=== PATIENT | female | born 1995 | race Caucasian/White ===

== ENCOUNTER 2017-09-06 18:22 | Emergency (ER) | payer OTHER | END 2017-09-06 19:49 | disposition left against medical advice (07) | LOC: UCCORT 18:22 | DX: R68.89 Other general symptoms and signs (principal); Z53.21 Procedure and treatment not carried out due to patient leaving prior to being seen by health care provider ==

== ENCOUNTER 2018-01-15 18:27 | Emergency (ER) | payer OTHER ==
--- OUTSIDE RECORDS SUMMARY | 2018-01-15 19:59 | XMS REPORT ---
:1995 External Reference #:[id number] Author Organization [facility] Address [address], [address] [place] [address] Phone [phone] Care Team Providers Name Role Phone Maggy Trujillo NP Care Team Information Speech Writer Unavailable Maggy Trujillo NP Primary Care Physician Unavailable Payers Type Date Identification Numbers Payment Provider Subscriber Commercial Effective: Policy Number: Dheeraj Medicaid Dianne Shafer 2007 [id number] PayID: [id number] [address] [place] [address] Medicaid Expires: 2017 Policy Number: [id number] Medicaid Dianne Shafer PayID: [id number] [address] [place] [address] Problems Date Description Provider Status Onset: 03/29/2017 Autoimmune hepatitis KIRA Mohan Active Note: Document: 03/05/17 - Consult Surgery-Transplant Onset: 03/29/2017 Graves' disease KIRA Mohan Active Onset: 02/06/2017 Palpitations KIRA Mohan Active Onset: 02/06/2017 Depressive disorder KIRA Mohan Active Onset: 02/06/2017 Abnormal liver function KIRA Mohan Active Onset: 11/07/2017 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 Onset: 11/07/2017 Drug-induced obesity KIRA Mohan Active Family History Date Family Member(s) Problem(s) Comments Father Unknown Mother Diabetes Mother Depression Mother Hypertension Mother Anxiety Paternal Grandfather Unknown Paternal Grandmother Unknown Maternal Grandfather Diabetes Maternal Grandfather CAD Maternal Grandmother Stroke Maternal Grandmother Diabetes Social History Type Date Description Comments Lives With Mother Diet Patient follows no dietary restrictions Occupation Student [employer] - studying psychology Occupation [employer] 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 Recreational Drug Use Denies Drug Use Smoking Patient denies history of Never smoked smoking Allergies, Adverse Reactions, Alerts Date Description Reaction Status Severity Comments 12/05/2016 Reglan active 12/05/2016 Adhesives active 03/09/2009 NKDA inactive Medications Medication Date Status Form Strength Qnty SIG Indications Ordering Provider Splint Wrist Misc 1units use on rt G56.01 Maggy Brace/Left-R 2018 wrist as ClKIRA moore ight/Reversi needed for ble computer work Naproxen 12/19/ Active Tablets 500mg 60tabs take one M72.2 Maggy 2018 tablet by KIRA Trujillo mouth twice a day S86.892A M46.1 Ibuprofen 12/05/2016 Active Tablets 800mg 90tabs take one E28.2 Maggy tablet by KIRA Trujillo mouth every 6 hours as needed Norgestimate-Et 12/05/2016 Active Tablets 0.25-3 28tabs one by Z30.09 Maggy h Estradiol 5mg-mc mouth KIRA Trujillo g every day Azathioprine Active Tablets 50mg 3 tabs po Unknown Calcium Active Tablets 600-40 Unknown Carbonate-Vitam 0mg-Un in D it Vitamin D Active Tablets 1000Un 1 by Unknown it mouth every day Synthroid Active Tablets 137mcg 90tabs 1 tab by Unknown mouth every day Paroxetine HCL Active Tablets 10mg Salma Rodríguez Sumatriptan 01/09/2017 - Hx Tablets 25mg 9tabs one by G43.10 Jenniferleigh Succinate 03/30/2017 mouth at 9 KIRA Trujillo the first sign of headache, may repeat dose in 2 hours if needed. mdd 2 Drospirenone/Et 12/05/2016 - Hx Tablets 3-0.02 Maggy hinyl 12/05/2016 -0.451 KIRA Trujillo Estradiol/Levom mg efolate Calcium Clonidine HCL 12/05/2016 - Hx Tablets 0.1mg 60tabs take one Maggy 03/30/2017 tablet by KIRA Trujillo mouth every night Fluoxetine HCL 12/05/2016 - Hx Capsules 10mg 30caps 1 by Maggy (PMDD) 01/09/2017 mouth KIRA Trujillo every day at bedtime Fluoxetine HCL - Hx Capsules 40mg Take One Unknown 03/30/2017 Capsule By Mouth Every Day Hydroxyzine - Hx Capsules 25mg Take 1 Unknown Pamoate 03/30/2017 Capsules By Mouth Every 8 Hours as Needed For Anxiety Metoprolol - Hx Tablets 25mg Take 1 Unknown Tartrate 11/07/2017 Tablet (25 MG Total) By Mouth 2 Times Daily Paroxetine HCL - Hx Tablets 20mg Take 1 Unknown 12/19/2017 Tablet By Mouth Every Day Prednisone - Hx Tablets 5mg as Unknown 11/07/2017 directed Levothyroxine - Hx Tablets 125mcg Unknown Sodium 12/19/2017 Vital Signs Date Vital Result Comment 01/09/2018 BP Systolic Sitting Left Arm 110 mmHg BP Diastolic Sitting Left Arm 72 mmHg Heart Rate 80 /min Respiratory Rate 18 /min Height 62 inches 5'2" Weight 186.25 lb BMI (Body Mass Index) 34.1 kg/m2 BSA (Body Surface Area) 1.85 m2 Swisher body weight in kilograms 50 12/19/2017 BP Systolic Sitting Left Arm 112 mmHg BP Diastolic Sitting Left Arm 72 mmHg Heart Rate 74 /min Respiratory Rate 18 /min Height 62 inches 5'2" Weight 180.00 lb BMI (Body Mass Index) 32.9 kg/m2 BSA (Body Surface Area) 1.83 m2 Swisher body weight in kilograms 50 11/07/2017 BP Systolic 112 mmHg BP Diastolic 74 mmHg Body Temperature 98.9 F Heart Rate 106 /min Respiratory Rate 18 /min Height 62 inches 5'2" Weight 181.00 lb BMI (Body Mass Index) 33.1 kg/m2 BSA (Body Surface Area) 1.83 m2 Swisher body weight in kilograms 50 O2 % BldC Oximetry 98 % 03/30/2017 BP Systolic Sitting Left Arm 108 mmHg BP Diastolic Sitting Left Arm 62 mmHg Heart Rate 88 /min Respiratory Rate 18 /min Height 62 inches 5'2" Weight 154.00 lb BMI (Body Mass Index) 28.2 kg/m2 BSA (Body Surface Area) 1.71 m2 Swisher body weight in kilograms 50 Height Percentile 18 % Weight Percentile 84th Last Menstrual Period [id number] 01/09/2017 BP Systolic 108 mmHg BP Diastolic 64 mmHg Height 62 inches 5'2" Weight 143.00 lb BMI (Body Mass Index) 26.2 kg/m2 BSA (Body Surface Area) 1.66 m2 Swisher body weight in kilograms 50 Height Percentile 3 % Weight Percentile <3rd 12/05/2016 BP Systolic 122 mmHg BP Diastolic 80 mmHg Height 62 inches 5'2" Weight 146.50 lb BMI (Body Mass Index) 26.8 kg/m2 BSA (Body Surface Area) 1.67 m2 Swisher body weight in kilograms 50 03/09/2009 Height 54 inches 4'6" Weight 74.00 lb BMI (Body Mass Index) 17.8 kg/m2 Height Percentile 7 % Weight Percentile 22nd Results Test Date Test Result H/L Range Note Urine Dipstick 12/19/2017 Ua PH 5 Low 6.5-7.5 Ua Specific [place] 1.025 1.010-1.030 CBC 10/05/2017 White Blood Count 8.2 K/uL 3.1-10.7 1 Red Blood Count 4.22 M/uL 3.90-5.40 1 Hemoglobin 13.5 gm/dL 11.6-15.8 1 Hematocrit 38.5 % 36.0-46.1 1 Mean Cell Volume 91.2 fl 80.9-99.0 1 Mean Corpuscular HGB 32.0 pg 25.9-32.7 1 Mean Corpuscular HGB Conc 35.1 g/dL High 30.8-34.3 1 Platelet Count 277 K/uL 155-360 1 Red Cell Distri Width %CV 13.5 % 11.7-14.4 1 Mean Platelet Volume 9.1 fL 8.9-12.4 1 Comprehensive Metabolic Panel 10/05/2017 Glucose 97 mg/dL 74-106 1 BUN 7 mg/dL 7-18 1 Creatinine 0.7 mg/dL 0.6-1.3 1 Glom Filtration Rate, Estimate >60 mL/min >60 1 If >60 mL/min >60 1, 2 BUN/Creat 10.0 ratio 1 Sodium 139 mmol/L 136-145 1 Potassium 3.7 mmol/L 3.5-5.1 1 Chloride 109 mmol/L High 98-107 1 Carbon Dioxide 24 mmol/L 21-32 1 Anion Gap 6 mEq/L Low 8-16 1 Calcium 8.5 mg/dL 8.5-10.1 1 Total Protein 7.8 g/dL 6.4-8.2 1 Albumin 3.4 g/dL 3.4-5.0 1 Globulin 4.4 g/dL High 1.9-4.3 1 Alb/Glob 0.8 ratio 1 Bilirubin,Total 0.6 mg/dL 0.2-1.0 1 Sgot/Ast 18 U/L 15-37 1 SGPT/Alt 16 U/L 12-78 1 Alkaline Phosphatase 115 U/L 45-117 1 CBS W/Automated Diff 04/24/2017 White Blood Count 9.6 K/uL 3.1-10.7 3 Red Blood Count 5.20 M/uL 3.90-5.40 3 Hemoglobin 14.6 gm/dL 11.6-15.8 3 Hematocrit 45.0 % 36.0-46.1 3 Mean Cell Volume 86.5 fl 80.9-99.0 3 Mean Corpuscular HGB 28.1 pg 25.9-32.7 3 Mean Corpuscular HGB Conc 32.4 g/dL 30.8-34.3 3 Platelet Count 258 K/uL 150-400 3 Red Cell Distri Width SD 43.3 fl 3-47 3 Red Cell Distri Width %CV 14.0 % 11.7-14.4 3 Mean Platelet Volume 9.1 fL 8.9-12.4 3 Neut% 51.0 % 28.0-68.0 3 Lymph % 37.9 % 20.0-42.0 3 [place] % 8.2 % 4.3-13.2 3 Eo% 2.5 % 0.0-6.6 3 Bas% 0.4 % 0.0-1.1 3 Neut# 4.91 K/uL 1.8-7.0 3 Lymph # 3.65 K/uL 1.0-4.0 3 [place] # 0.79 K/uL 0.3-0.9 3 Eos # 0.24 K/uL 0.0-0.5 3 Baso # 0.04 K/uL 0.0-0.1 3 Comprehensive Metabolic Panel 04/24/2017 Glucose 77 mg/dL 74-106 3 BUN 6 mg/dL Low 7-18 3 Creatinine 0.6 mg/dL 0.6-1.3 3 Glom Filtration Rate, Estimate >60 mL/min >60 3 If >60 mL/min >60 3, 4 BUN/Creat 10.0 ratio 3 Sodium 138 mmol/L 136-145 3 Potassium 3.8 mmol/L 3.5-5.1 3 Chloride 103 mmol/L 98-107 3 Carbon Dioxide 29 mmol/L 21-32 3 Anion Gap 6 mEq/L Low 8-16 3 Calcium 9.2 mg/dL 8.5-10.1 3 Total Protein 7.7 g/dL 6.4-8.2 3 Albumin 3.3 g/dL Low 3.4-5.0 3 Globulin 4.4 g/dL High 1.9-4.3 3 Alb/Glob 0.8 ratio 3 Bilirubin,Total 0.5 mg/dL 0.2-1.0 3 Sgot/Ast 10 U/L Low 15-37 3, 5 SGPT/Alt 25 U/L 12-78 3 Alkaline Phosphatase 108 U/L 45-117 3 Laboratory test finding 04/24/2017 Magnesium 2.1 mg/dL 1.8-2.4 3 HCG,Serum (Qualitative) NEGATIVE (Negative) 3, 6 Protime 03/29/2017 Protime 12.7 seconds 12.0-14.4 7 Inr 1.0 0.9-1.1 7, 8 Anticoagulant Therapy? NO 7 Differential-WBC Confirm 03/29/2017 Total Cells Counted 100 #CELLS 7 Band% 6 % 0-8 7 Neutrophils% 60 % 28-68 7 Lymph% 21 % 20-42 7 Atypical Lymph% 2 % 0-7 7 Monocyte% 11 % High 0-10 7 Platelet Estimate NORMAL 7 Anticoagulant Therapy? NO 7 Slide Review 03/29/2017 Slide Review DIFF ORDERED 7 Anticoagulant Therapy? NO 7 CBS W/Automated Diff 03/29/2017 White Blood Count 19.2 K/uL High 3.1-10.7 7 Red Blood Count 4.78 M/uL 3.90-5.40 7 Hemoglobin 13.9 gm/dL 11.6-15.8 7 Hematocrit 40.0 % 36.0-46.1 7 Mean Cell Volume 83.7 fl 80.9-99.0 7 Mean Corpuscular HGB 29.1 pg 25.9-32.7 7 Mean Corpuscular HGB Conc 34.8 g/dL High 30.8-34.3 7 Platelet Count 239 K/uL 150-400 7 Red Cell Distri Width SD 47.4 fl High 3-47 7 Red Cell Distri Width %CV 15.7 % High 11.7-14.4 7 Mean Platelet Volume 9.2 fL 8.9-12.4 7, 9 Neut# 14.56 K/uL High 1.8-7.0 7 Lymph # 3.17 K/uL 1.0-4.0 7 [place] # 1.39 K/uL High 0.3-0.9 7 Eos # 0.10 K/uL 0.0-0.5 7 Baso # 0.02 K/uL 0.0-0.1 7 Anticoagulant Therapy? NO 7 Laboratory test finding 03/29/2017 Amylase 51 U/L 25-115 7 Lipase 179 U/L 56-289 7 Comprehensive Metabolic Panel 03/29/2017 Glucose 79 mg/dL 74-106 7 BUN 2 mg/dL Low 7-18 7 Creatinine 0.4 mg/dL Low 0.6-1.3 7 Glom Filtration Rate, Estimate >60 mL/min >60 7 If >60 mL/min >60 7, 10 BUN/Creat 5.0 ratio 7 Sodium 137 mmol/L 136-145 7 Potassium 3.3 mmol/L Low 3.5-5.1 7 Chloride 106 mmol/L 98-107 7 Carbon Dioxide 23 mmol/L 21-32 7 Anion Gap 8 mEq/L 8-16 7 Calcium 8.8 mg/dL 8.5-10.1 7 Liver Function Tests 03/29/2017 Total Protein 7.3 g/dL 6.4-8.2 7 Albumin 3.2 g/dL Low 3.4-5.0 7 Globulin 4.1 g/dL 1.9-4.3 7 Alb/Glob 0.8 ratio 7 Bilirubin,Total 0.8 mg/dL 0.2-1.0 7 Bilirubin,Direct 0.2 mg/dL 0.0-0.2 7 Bilirubin,Indirect 0.6 mg/dL 0.0-0.9 7 Sgot/Ast 20 U/L 15-37 7 SGPT/Alt 44 U/L 12-78 7 Alkaline Phosphatase 169 U/L High 45-117 7 Protime 02/13/2017 Protime 13.7 seconds 12.0-14.4 11 Inr 1.1 0.9-1.1 11, 12 CBS W/Automated Diff 02/13/2017 White Blood Count 8.6 K/uL 3.1-10.7 11 Red Blood Count 5.05 M/uL 3.90-5.40 11 Hemoglobin 13.7 gm/dL 11.6-15.8 11 Hematocrit 40.5 % 36.0-46.1 11 Mean Cell Volume 80.2 fl Low 80.9-99.0 11 Mean Corpuscular HGB 27.1 pg 25.9-32.7 11 Mean Corpuscular HGB Conc 33.8 g/dL 30.8-34.3 11 Platelet Count 193 K/uL 150-400 11 Red Cell Distri Width SD 41.8 fl 3-47 11 Red Cell Distri Width %CV 14.5 % High 11.7-14.4 11 Mean Platelet Volume 11.3 fL 8.9-12.4 11 Neut% 52.4 % 28.0-68.0 11 Lymph % 32.4 % 20.0-42.0 11 [place] % 10.2 % 4.3-13.2 11 Eo% 4.8 % 0.0-6.6 11 Bas% 0.2 % 0.0-1.1 11 Neut# 4.51 K/uL 1.8-7.0 11 Lymph # 2.79 K/uL 1.0-4.0 11 [place] # 0.88 K/uL 0.3-0.9 11 Eos # 0.41 K/uL 0.0-0.5 11 Baso # 0.02 K/uL 0.0-0.1 11 Liver Function Tests 02/13/2017 Total Protein 8.0 g/dL 6.4-8.2 11 Albumin 2.8 g/dL Low 3.4-5.0 11 Globulin 5.2 g/dL High 1.9-4.3 11 Alb/Glob 0.5 ratio 11 Bilirubin,Total 12.1 mg/dL High 0.2-1.0 11 Bilirubin,Direct 9.1 mg/dL High 0.0-0.2 11 Bilirubin,Indirect 3.0 mg/dL High 0.0-0.9 11 Sgot/Ast 1172 U/L High 15-37 11 SGPT/Alt 1132 U/L High 12-78 11 Alkaline Phosphatase 147 U/L High 45-117 11 Aot Request 02/12/2017 Aot Request Test(s) added 11, 13 Tests to be added: LDH 11 Liver Function Tests 02/12/2017 Total Protein 7.1 g/dL 6.4-8.2 14 Albumin 2.5 g/dL Low 3.4-5.0 14 Globulin 4.6 g/dL High 1.9-4.3 14 Alb/Glob 0.5 ratio 14 Bilirubin,Total 9.5 mg/dL High 0.2-1.0 14 Bilirubin,Direct 7.2 mg/dL High 0.0-0.2 14 Bilirubin,Indirect 2.3 mg/dL High 0.0-0.9 14 Sgot/Ast 803 U/L High 15-37 14 SGPT/Alt 931 U/L High 12-78 14 Alkaline Phosphatase 130 U/L High 45-117 14 Basic Metabolic Panel 02/12/2017 Glucose 105 mg/dL 74-106 14 BUN 7 mg/dL 7-18 14 Creatinine 0.4 mg/dL Low 0.6-1.3 14 Glom Filtration Rate, Estimate >60 mL/min >60 14 If >60 mL/min >60 14, 15 BUN/Creat 17.5 ratio 14 Sodium 140 mmol/L 136-145 14 Potassium 4.0 mmol/L 3.5-5.1 14 Chloride 109 mmol/L High 98-107 14 Carbon Dioxide 22 mmol/L 21-32 14 Anion Gap 9 mEq/L 8-16 14 Calcium 8.5 mg/dL 8.5-10.1 14 Laboratory test finding 02/12/2017 Magnesium 2.0 mg/dL 1.8-2.4 14 LDH 453 U/L High 84-246 14 Laboratory test finding 02/11/2017 Magnesium 1.7 mg/dL Low 1.8-2.4 14 C-Reactive Protein,Quant 10.6 mg/L High <3.0 14 Basic Metabolic Panel 02/11/2017 Glucose 122 mg/dL High 74-106 14 BUN 6 mg/dL Low 7-18 14 Creatinine 0.4 mg/dL Low 0.6-1.3 14 Glom Filtration Rate, Estimate >60 mL/min >60 14 If >60 mL/min >60 14, 16 BUN/Creat 15.0 ratio 14 Sodium 137 mmol/L 136-145 14 Potassium 3.4 mmol/L Low 3.5-5.1 14 Chloride 107 mmol/L 98-107 14 Carbon Dioxide 23 mmol/L 21-32 14 Anion Gap 7 mEq/L Low 8-16 14 Calcium 9.1 mg/dL 8.5-10.1 14 Liver Function Tests 02/11/2017 Total Protein 7.0 g/dL 6.4-8.2 14 Albumin 2.5 g/dL Low 3.4-5.0 14 Globulin 4.5 g/dL High 1.9-4.3 14 Alb/Glob 0.6 ratio 14 Bilirubin,Total 9.3 mg/dL High 0.2-1.0 14 Bilirubin,Direct 7.1 mg/dL High 0.0-0.2 14 Bilirubin,Indirect 2.2 mg/dL High 0.0-0.9 14 Sgot/Ast 739 U/L High 15-37 14 SGPT/Alt 869 U/L High 12-78 14 Alkaline Phosphatase 122 U/L High 45-117 14 Protime 02/11/2017 Protime 13.9 seconds 12.0-14.4 14 Inr 1.1 0.9-1.1 14, 17 Laboratory test 02/11/2017 Sedimentation Rate 5 mm/hr 0-20 14, 18 finding Laboratory test 02/10/2017 Cytomegalovirus (CMV) >10.00 U/mL High 0.00- 0.59 14, 19 finding Ab, IgG Cytomegalovirus IgM AB <30.0 AU/mL 0.0-29.9 14, 20 HSV I & II Igg Type 02/10/2017 HSV II,Igg,Type <0.91 index 0.00-0.90 14 , 21 Specific Specific HSV Type I Specific Igg 24.10 index High 0.00-0.90 14, 22 Ebv Acute Infection Antibodies 02/10/2017 Ebv AB Vca,Igm <36.0 U/mL 0.0- 35.9 14, 23 Ebv Early Antigen AB, IgG <9.0 U/mL 0.0-8.9 14, 24 Ebv AB Vca,Igg 250.0 U/mL High 0.0-17.9 14, 25 Ebv Nuclear Antigen AB, Igg >600.0 U/mL High 0.0-17.9 14, 26 Ebv Interpretation (SEE NOTE) 14, 27 Laboratory test 02/10/2017 Mitochondrial (M2) 4.8 units 0.0-20.0 14, 28 finding Antibodies Actin (Smooth Muscle) Antibody 14 units 0-19 14, 29 Celiac Disease Comp AB Profile 02/10/2017 Immunoglobulin A 141 mg/dL 87- 352 14 Antigliadin Abs, IgG 6 units 0-19 14, 30 Antigliadin Abs, IgA 5 units 0-19 14, 31 Endomysial IgA Antibody Negative Negative 14 t-Transglutaminase IgA <2 U/mL 0-3 14, 32 t-Transglutaminase IgG 5 U/mL 0-5 14, 33 Laboratory test finding 02/10/2017 Antinuclear Antibodies, Negative . 14 , 34 Ifa Protein Electro.,S 02/10/2017 Protein,Total,Serum 7.0 g/dL 6.0-8.5 14 Albumin 3.0 g/dL 2.9-4.4 14 Kopcp-4-Kklnkmbp 0.3 g/dL 0.0-0.4 14 Ehhib-8-Msdermev 0.6 g/dL 0.4-1.0 14 Beta Globulin 1.0 g/dL 0.7-1.3 14 Gamma Globulin 2.0 g/dL High 0.4-1.8 14 M-Dano Not Observed g/dL Not Observed 14 Globulin, Total 4.0 g/dL High 2.2-3.9 14 A/G Ratio 0.8 0.7-1.7 14 Please Note: (SEE NOTE) 14, 35 P E Interpretation, Serum (SEE NOTE) 14, 36 Laboratory test finding 02/10/2017 Gamma Glutamyl Transpeptidase 79 U/L 5 -85 14 Wehhb-9-Avetuywdcvg,Serum 221 mg/dL High 90-200 14 Ceruloplasmin 46.3 mg/dL High 19.0-39.0 14 Nucleotidase,5 9 IU/L 0-10 14 Basic Metabolic Panel 02/10/2017 Glucose 80 mg/dL 74-106 14 BUN 6 mg/dL Low 7-18 14 Creatinine 0.4 mg/dL Low 0.6-1.3 14 Glom Filtration Rate, Estimate >60 mL/min >60 14 If >60 mL/min >60 14, 37 BUN/Creat 15.0 ratio 14 Sodium 137 mmol/L 136-145 14 Potassium 4.0 mmol/L 3.5-5.1 14 Chloride 107 mmol/L 98-107 14 Carbon Dioxide 23 mmol/L 21-32 14 Anion Gap 7 mEq/L Low 8-16 14 Calcium 9.5 mg/dL 8.5-10.1 14 Liver Function Tests 02/10/2017 Total Protein 8.1 g/dL 6.4-8.2 14 Albumin 3.1 g/dL Low 3.4-5.0 14 Globulin 5.0 g/dL High 1.9-4.3 14 Alb/Glob 0.6 ratio 14 Bilirubin,Total 9.8 mg/dL High 0.2-1.0 14 Bilirubin,Direct 7.5 mg/dL High 0.0-0.2 14 Bilirubin,Indirect 2.3 mg/dL High 0.0-0.9 14 Sgot/Ast 942 U/L High 15-37 14 SGPT/Alt 998 U/L High 12-78 14 Alkaline Phosphatase 152 U/L High 45-117 14 Protime 02/10/2017 Protime 13.4 seconds 12.0-14.4 14 Inr 1.0 0.9-1.1 14, 38 Laboratory test finding 02/10/2017 Ammonia 34 umol/L High 11-32 14 Iron-Tibc-%Sat 02/09/2017 Serum Iron 173 g/dL High 50-170 14 Total Iron Binding Capacity 344 g/dL 250-450 14 Transferrin %Saturation 50 % 12-57 14 Laboratory test finding 02/09/2017 Ferritin 176 ng/mL 8-252 14 Comprehensive Metabolic Panel 02/09/2017 Glucose 79 mg/dL 74-106 14 BUN 5 mg/dL Low 7-18 14 Creatinine 0.4 mg/dL Low 0.6-1.3 14 Glom Filtration Rate, Estimate >60 mL/min >60 14 If >60 mL/min >60 14, 39 BUN/Creat 12.5 ratio 14 Sodium 139 mmol/L 136-145 14 Potassium 3.3 mmol/L Low 3.5-5.1 14 Chloride 106 mmol/L 98-107 14 Carbon Dioxide 24 mmol/L 21-32 14 Anion Gap 9 mEq/L 8-16 14 Calcium 8.9 mg/dL 8.5-10.1 14 Total Protein 7.9 g/dL 6.4-8.2 14 Albumin 3.0 g/dL Low 3.4-5.0 14 Globulin 4.9 g/dL High 1.9-4.3 14 Alb/Glob 0.6 ratio 14 Bilirubin,Total 8.9 mg/dL High 0.2-1.0 14 Sgot/Ast 819 U/L High 15-37 14 SGPT/Alt 953 U/L High 12-78 14 Alkaline Phosphatase 161 U/L High 45-117 14 Laboratory test finding 02/08/2017 Acetaminophen < 2.0 ug/mL Low 10.0- 30.0 40, 41 Protime 02/08/2017 Protime 13.0 seconds 12.0-14.4 40 Inr 1.0 0.9-1.1 40, 42 Hepatitis Evaluation 02/08/2017 Hepatitis A Antibody IgM Negative Negative 40 HBsAg Screen [Ref Lab] Negative Negative 40 Hepatitis B Core IgM Negative Negative 40 HCV Signal/Cutoff ratio 0.2 s/corat 0.0-0.9 40, 43 Laboratory test finding 02/08/2017 Lipase 139 U/L 73-393 40 CBS W/Automated Diff 02/08/2017 White Blood Count 7.2 K/uL 3.1-10.7 40 Red Blood Count 4.94 M/uL 3.90-5.40 40 Hemoglobin 13.7 gm/dL 11.6-15.8 40 Hematocrit 40.4 % 36.0-46.1 40 Mean Cell Volume 81.8 fl 80.9-99.0 40 Mean Corpuscular HGB 27.7 pg 25.9-32.7 40 Mean Corpuscular HGB Conc 33.9 g/dL 30.8-34.3 40 Platelet Count 162 K/uL 150-400 40 Red Cell Distri Width SD 40.9 fl 3-47 40 Red Cell Distri Width %CV 14.0 % 11.7-14.4 40 Mean Platelet Volume 10.1 fL 8.9-12.4 40 Neut% 55.5 % 28.0-68.0 40 Lymph % 29.5 % 20.0-42.0 40 [place] % 11.9 % 4.3-13.2 40 Eo% 2.8 % 0.0-6.6 40 Bas% 0.3 % 0.0-1.1 40 Neut# 4.02 K/uL 1.8-7.0 40 Lymph # 2.13 K/uL 1.0-4.0 40 [place] # 0.86 K/uL 0.3-0.9 40 Eos # 0.20 K/uL 0.0-0.5 40 Baso # 0.02 K/uL 0.0-0.1 40 Ua Routine 02/08/2017 Urine Color DK YELLOW Yellow 40 Urine Clarity CLEAR Clear 40 Urine Glucose - Dipstick 100 mg/dL High Negative 40 Urine Bilirubin - Dipstick LARGE Negative 40 Urine Ketone NEGATIVE mg/dL Negative 40 Urine Specific [place] 1.025 1.010-1.030 40 Urine Blood NEGATIVE Negative 40 Urine PH 5.5 Low 6.5-7.5 40 Urine Protein - Dipstick NEGATIVE mg/dL Negative 40 Urine Urobilinogen - Dipstick 0.2 E.U./dL 0.2-1.0 40 Urine Nitrite - Dipstick NEGATIVE Negative 40 Urine Leuk Esterase TRACE Negative 40 Urine RBC NONE SEEN rbc/hpf 0-2 40 Urine WBC 0-2 wbc/hpf 0-7 40 Urine Epithelial Cells MODERATE /lpf None Seen 40, 44 Urine Calcium Oxalate Crystals MANY None Seen 40 Urine Bacteria FEW None Seen 40 Source: URINE, CLEAN CAT <SEE NOTE> 40, 45 Comprehensive Metabolic Panel 02/08/2017 Glucose 85 mg/dL 74-106 40 BUN 5 mg/dL Low 7-18 40 Creatinine 0.5 mg/dL Low 0.6-1.3 40 Glom Filtration Rate, Estimate >60 mL/min >60 40 If >60 mL/min >60 40, 46 BUN/Creat 10.0 ratio 40 Sodium 137 mmol/L 136-145 40 Potassium 3.1 mmol/L Low 3.5-5.1 40 Chloride 105 mmol/L 98-107 40 Carbon Dioxide 24 mmol/L 21-32 40 Anion Gap 8 mEq/L 8-16 40 Calcium 8.8 mg/dL 8.5-10.1 40 Total Protein 7.8 g/dL 6.4-8.2 40 Albumin 3.0 g/dL Low 3.4-5.0 40 Globulin 4.8 g/dL High 1.9-4.3 40 Alb/Glob 0.6 ratio 40 Bilirubin,Total 7.9 mg/dL High 0.2-1.0 40 Sgot/Ast 832 U/L High 15-37 40 SGPT/Alt 973 U/L High 12-78 40 Alkaline Phosphatase 165 U/L High 45-117 40 Basic Metabolic Panel 02/02/2017 Glucose 113 mg/dL High 74-106 47 BUN 5 mg/dL Low 7-18 47 Creatinine 0.5 mg/dL Low 0.6-1.3 47 Glom Filtration Rate, Estimate >60 mL/min >60 47 If >60 mL/min >60 47, 48 BUN/Creat 10.0 ratio 47 Sodium 139 mmol/L 136-145 47 Potassium 3.4 mmol/L Low 3.5-5.1 47 Chloride 105 mmol/L 98-107 47 Carbon Dioxide 27 mmol/L 21-32 47 Anion Gap 7 mEq/L Low 8-16 47 Calcium 9.4 mg/dL 8.5-10.1 47 Drugs Of Abuse-Urine Screen 7 01/31/2017 Amphetamines (Urine) Negative 49 Barbiturates (Urine) Negative 49 Benzodiazepines (Urine) Negative 49 Cannabinoids (Urine) Negative 49 Cocaine Metabolite (Urine) Negative 49 Methadone (Urine) Negative 49 Opiates (Urine) Negative 49 Urine Cutoffs * 49, 50 Aot Request 01/31/2017 Aot Request Test(s) added 49, 51 Tests to be added: ddimer 49 Laboratory test finding 01/31/2017 Free T4 > 8.00 ng/dL High 0.76-1.46 52 Treponema Antibody [place] Negative Negative 52, 53 LDL Cholesterol Profile 01/31/2017 Cholesterol 95 mg/dL <200 52, 54 Triglycerides 81 mg/dL <150 52, 55 HDL Cholesterol 27 mg/dL Low >40 52, 56 LDL-Cholesterol 52 mg/dL < 100 52, 57 Laboratory test finding 01/31/2017 Thyroid Stim Hormone < 0.01 uIU/mL Low 0.30-4.20 58 Salicylate < 2.0 mg/dL Low 2.8-20.0 58, 59 Acetaminophen < 2.0 ug/mL Low 10.0-30.0 58, 60 Comprehensive Metabolic Panel 01/31/2017 Glucose 130 mg/dL High 74-106 58 BUN 3 mg/dL Low 7-18 58 Creatinine 0.5 mg/dL Low 0.6-1.3 58 Glom Filtration Rate, Estimate >60 mL/min >60 58 If >60 mL/min >60 58, 61 BUN/Creat 6.0 ratio 58 Sodium 141 mmol/L 136-145 58 Potassium 3.0 mmol/L Low 3.5-5.1 58 Chloride 108 mmol/L High 98-107 58 Carbon Dioxide 23 mmol/L 21-32 58 Anion Gap 10 mEq/L 8-16 58 Calcium 8.9 mg/dL 8.5-10.1 58 Total Protein 7.8 g/dL 6.4-8.2 58 Albumin 3.1 g/dL Low 3.4-5.0 58 Globulin 4.7 g/dL High 1.9-4.3 58 Alb/Glob 0.7 ratio 58 Bilirubin,Total 2.4 mg/dL High 0.2-1.0 58 Sgot/Ast 414 U/L High 15-37 58 SGPT/Alt 709 U/L High 12-78 58 Alkaline Phosphatase 142 U/L High 45-117 58 Laboratory test 01/31/2017 D-Dimer, Quantitative < 0.22 ug/mL 58, 62 finding CBS W/Automated Diff 01/31/2017 White Blood Count 5.2 K/uL 3.1-10.7 58 Red Blood Count 4.85 M/uL 3.90-5.40 58 Hemoglobin 13.7 gm/dL 11.6-15.8 58 Hematocrit 39.4 % 36.0-46.1 58 Mean Cell Volume 81.2 fl 80.9-99.0 58 Mean Corpuscular HGB 28.2 pg 25.9-32.7 58 Mean Corpuscular HGB Conc 34.8 g/dL High 30.8-34.3 58 Platelet Count 168 K/uL 150-400 58 Red Cell Distri Width SD 38.9 fl 3-47 58 Red Cell Distri Width %CV 13.5 % 11.7-14.4 58 Mean Platelet Volume 10.0 fL 8.9-12.4 58 Neut% 56.6 % 28.0-68.0 58 Lymph % 30.6 % 20.0-42.0 58 [place] % 11.8 % 4.3-13.2 58 Eo% 0.8 % 0.0-6.6 58 Bas% 0.2 % 0.0-1.1 58 Neut# 2.92 K/uL 1.8-7.0 58 Lymph # 1.58 K/uL 1.0-4.0 58 [place] # 0.61 K/uL 0.3-0.9 58 Eos # 0.04 K/uL 0.0-0.5 58 Baso # 0.01 K/uL 0.0-0.1 58 Laboratory test finding 01/31/2017 Ethyl Alcohol < 3.0 mg/dL 58 Urine Culture 01/31/2017 Urine Culture URETHRAL KAREY 58 Quantity 10,000 - 50,000 <SEE NOTE> 58, 63 Culture If Indicated 01/31/2017 Culture If Indicated CULTURE TO FOLLO 58, 64 Comment Comment <SEE NOTE> Source: URINE, CLEAN CAT <SEE NOTE> 58, 65 Ua Routine 01/31/2017 Urine Color ORANGE Yellow 58 Urine Clarity CLOUDY Clear 58 Urine Glucose - Dipstick NEGATIVE mg/dL Negative 58 Urine Bilirubin - Dipstick MODERATE Negative 58 Urine Ketone NEGATIVE mg/dL Negative 58 Urine Specific [place] >=1.030 1.010-1.030 58 Urine Blood LARGE Negative 58 Urine PH 5.5 Low 6.5-7.5 58 Urine Protein - Dipstick 30 mg/dL High Negative 58 Urine Urobilinogen - Dipstick 4.0 E.U./dL High 0.2-1.0 58 Urine Nitrite - Dipstick POSITIVE Negative 58 Urine Leuk Esterase NEGATIVE Negative 58 Urine RBC 10-20 rbc/hpf High 0-2 58 Urine WBC 0-2 wbc/hpf 0-7 58 Urine Epithelial Cells FEW /lpf None Seen 58 Urine Calcium Oxalate Crystals FEW None Seen 58 Urine Bacteria MODERATE None Seen 58 Urine Amorph Sediment LARGE Negative 58 Source: URINE, CLEAN CAT <SEE NOTE> 58, 66 Urine HCG (Qualitative) 01/31/2017 Urine HCG (Qualitative) NEGATIVE Negative 58, 67 Source: URINE, CLEAN CAT <SEE NOTE> 58, 68 Aot Request 01/31/2017 Aot Request Test(s) added 58, 69 Tests to be added: acetaminophen, s <SEE NOTE> 58, 70 Urine HCG (Qualitative) 01/12/2017 Urine HCG (Qualitative) NEGATIVE Negative 71, 72 Source: URINE, CLEAN CAT <SEE NOTE> 71, 73 WBC # Bld Auto 01/12/2017 WBC # Bld Auto 7.8 3.1-10.7 Sodium SerPl-sCnc 01/12/2017 Sodium SerPl-sCnc 140 136-145 Serum or plasma total 01/12/2017 Serum or plasma total 0.5 0.2-1.0 bilirubin measurement bilirubin measurement (mass/ (mass/volume) Serum or plasma lipase 01/12/2017 Serum or plasma lipase 160 73-393 measurement (enzymatic measurement (enzymatic acti activity/volume) RDW RBC Auto-Rto 01/12/2017 RDW RBC Auto-Rto 12.2 11.7-14.4 RDW RBC Auto 01/12/2017 RDW RBC Auto 34.8 3-47 Prot SerPl-mCnc 01/12/2017 Prot SerPl-mCnc 7.1 6.4-8.2 Potassium SerPl-sCnc 01/12/2017 Potassium SerPl-sCnc 3.9 3.5-5.1 Platelets [#/volume] in 01/12/2017 Platelets [#/volume] in 186 150-400 Blood by Automated count Blood by Automated count PMV Bld Auto 01/12/2017 PMV Bld Auto 9.7 8.9-12.4 Neutrophils/leuk NFr Bld 01/12/2017 Neutrophils/leuk NFr Bld 63.2 28.0- 68.0 Auto Auto Neutrophils # Bld Auto 01/12/2017 Neutrophils # Bld Auto 4.95 1.8-7.0 Ua RFX Micro & Culture II 01/12/2017 Urine Color YELLOW Yellow 71 Urine Clarity CLEAR Clear 71 Urine Glucose - Dipstick NEGATIVE mg/dL Negative 71 Urine Bilirubin - Dipstick NEGATIVE Negative 71 Urine Ketone NEGATIVE mg/dL Negative 71 Urine Specific [place] <=1.005 Low 1.010-1.030 71 Urine Blood TRACE Negative 71 Urine PH 5.5 Low 6.5-7.5 71 Urine Protein - Dipstick NEGATIVE mg/dL Negative 71 Urine Urobilinogen - Dipstick 0.2 E.U./dL 0.2-1.0 71 Urine Nitrite - Dipstick NEGATIVE Negative 71 Urine Leuk Esterase NEGATIVE Negative 71 Source: URINE, CLEAN CAT <SEE NOTE> 71, 74 Color Ur 01/12/2017 Color Ur Yellow Yellow Ketones Ur 01/12/2017 Ketones Ur Negative Negative Strip.auto-mCnc Strip.auto-mCnc Leukocyte esterase Ur Ql 01/12/2017 Leukocyte esterase Ur Ql Negative Negative Strip.auto Strip.auto Nitrite Ur Ql Strip.auto 01/12/2017 Nitrite Ur Ql Strip.auto Negative Negative Prot Ur Strip.auto-mCnc 01/12/2017 Prot Ur Strip.auto-mCnc Negative Negative Urine appearance 01/12/2017 Urine appearance Clear Clear determination determination Urine glucose 01/12/2017 Urine glucose Negative Negative measurement by automated measurement by automated test strip test strip (mass/volume) Urine hemoglobin 01/12/2017 Urine hemoglobin Trace Negative detection by automated detection by automated test strip test strip Urine human chorionic 01/12/2017 Urine human chorionic Negative Negative gonadotropin (hCG) gonadotropin (hCG) detection detection Urine total bilirubin 01/12/2017 Urine total bilirubin Negative Negative detection by automated detection by automated test test strip Urobilinogen Ur 01/12/2017 Urobilinogen Ur 0.2 0.2-1.0 Strip-aCnc Strip-aCnc pH Ur Strip.auto 01/12/2017 pH Ur Strip.auto 5.5 Low 6.5-7.5 CBS W/Automated Diff 01/12/2017 White Blood Count 7.8 K/uL 3.1-10.7 71 Red Blood Count 4.42 M/uL 3.90-5.40 71 Hemoglobin 12.5 gm/dL 11.6-15.8 71 Hematocrit 35.6 % Low 36.0-46.1 71 Mean Cell Volume 80.5 fl Low 80.9-99.0 71 Mean Corpuscular HGB 28.3 pg 25.9-32.7 71 Mean Corpuscular HGB Conc 35.1 g/dL High 30.8-34.3 71 Platelet Count 186 K/uL 150-400 71 Red Cell Distri Width SD 34.8 fl 3-47 71 Red Cell Distri Width %CV 12.2 % 11.7-14.4 71 Mean Platelet Volume 9.7 fL 8.9-12.4 71 Neut% 63.2 % 28.0-68.0 71 Lymph % 24.4 % 20.0-42.0 71 [place] % 10.1 % 4.3-13.2 71 Eo% 2.2 % 0.0-6.6 71 Bas% 0.1 % 0.0-1.1 71 Neut# 4.95 K/uL 1.8-7.0 71 Lymph # 1.91 K/uL 1.0-4.0 71 [place] # 0.79 K/uL 0.3-0.9 71 Eos # 0.17 K/uL 0.0-0.5 71 Baso # 0.01 K/uL 0.0-0.1 71 Comprehensive Metabolic Panel 01/12/2017 Glucose 110 mg/dL High 74-106 71 BUN 5 mg/dL Low 7-18 71 Creatinine 0.5 mg/dL Low 0.6-1.3 71 Glom Filtration Rate, Estimate >60 mL/min >60 71 If >60 mL/min >60 71, 75 BUN/Creat 10.0 ratio 71 Sodium 140 mmol/L 136-145 71 Potassium 3.9 mmol/L 3.5-5.1 71 Chloride 109 mmol/L High 98-107 71 Carbon Dioxide 24 mmol/L 21-32 71 Anion Gap 7 mEq/L Low 8-16 71 Calcium 9.1 mg/dL 8.5-10.1 71 Total Protein 7.1 g/dL 6.4-8.2 71 Albumin 3.1 g/dL Low 3.4-5.0 71 Globulin 4.0 g/dL 1.9-4.3 71 Alb/Glob 0.8 ratio 71 Bilirubin,Total 0.5 mg/dL 0.2-1.0 71 Sgot/Ast 25 U/L 15-37 71 SGPT/Alt 31 U/L 12-78 71 Alkaline Phosphatase 95 U/L 45-117 71 Laboratory test finding 01/12/2017 Lipase 160 U/L 73-393 71 Alp SerPl-cCnc 01/12/2017 Alp SerPl-cCnc 95 45-117 Alt SerPl-cCnc 01/12/2017 Alt SerPl-cCnc 31 12-78 Albumin SerPl-mCnc 01/12/2017 Albumin SerPl-mCnc 3.1 Low 3.4-5.0 Albumin/Glob SerPl 01/12/2017 Albumin/Glob SerPl 0.8 Anion Gap SerPl-sCnc 01/12/2017 Anion Gap SerPl-sCnc 7 Low 8-16 Aspartate 01/12/2017 Aspartate 25 15-37 aminotransferase aminotransferase [Enzymatic activity/vol [Enzymatic activity/volume] in Serum or Plasma Automated erythrocyte 01/12/2017 Automated erythrocyte 28.3 25.9-32.7 mean corpuscular mean corpuscular hemoglobin hemoglobin (mass per erythrocyte) Automated erythrocyte 01/12/2017 Automated erythrocyte 35.1 High 30.8- 34.3 mean corpuscular mean corpuscular hemoglobin hemoglobin concentration measurement (mass/volume) BUN SerPl-mCnc 01/12/2017 BUN SerPl-mCnc 5 7-18 BUN/Creat SerPl 01/12/2017 BUN/Creat SerPl 10.0 Basophils [#/volume] in 01/12/2017 Basophils [#/volume] in 0.01 0.0-0.1 Blood by Automated Blood by Automated count count Basophils/leuk NFr Bld 01/12/2017 Basophils/leuk NFr Bld 0.1 0.0-1.1 Auto Auto Monocytes/leuk NFr Bld 01/12/2017 Monocytes/leuk NFr Bld 10.1 4.3-13.2 Auto Auto MCV RBC Auto 01/12/2017 MCV RBC Auto 80.5 Low 80.9-99.0 Lymphocytes/leuk NFr 01/12/2017 Lymphocytes/leuk NFr 24.4 20.0-42.0 Bld Auto Bld Auto Lymphocytes [#/volume] 01/12/2017 Lymphocytes [#/volume] 1.91 1.0-4.0 in Blood by Automated in Blood by Automated count count Hct VFr Bld Auto 01/12/2017 Hct VFr Bld Auto 35.6 Low 36.0-46.1 Glucose [Mass/volume] 01/12/2017 Glucose [Mass/volume] 110 High 74-106 in Serum or Plasma in Serum or Plasma Globulin Ser Calc-mCnc 01/12/2017 Globulin Ser Calc-mCnc 4.0 1.9-4.3 Eosinophil/leuk NFr Bld 01/12/2017 Eosinophil/leuk NFr Bld 2.2 0.0-6.6 Auto Auto Eosinophil # Bld Auto 01/12/2017 Eosinophil # Bld Auto 0.17 0.0-0.5 Creat SerPl-mCnc 01/12/2017 Creat SerPl-mCnc 0.5 Low 0.6-1.3 Chloride SerPl-sCnc 01/12/2017 Chloride SerPl-sCnc 109 High 98-107 Calcium SerPl-mCnc 01/12/2017 Calcium SerPl-mCnc 9.1 8.5-10.1 Co2 SerPl-sCnc 01/12/2017 Co2 SerPl-sCnc 24 21-32 Blood monocytes 01/12/2017 Blood monocytes 0.79 0.3-0.9 automated count automated count (number/volume) (number/volume) Blood hemoglobin 01/12/2017 Blood hemoglobin 12.5 11.6-15.8 measurement measurement (mass/volume) (mass/volume) Blood erythrocytes 01/12/2017 Blood erythrocytes 4.42 3.90-5.40 automated count automated count (number/volume) (number/volume) Bacteria [Presence] in 10/23/2016 Bacteria [Presence] in Very Few None Seen Urine sediment by Light Urine sediment by Light amy microscopy Epithelial cells 10/23/2016 Epithelial cells Very Few None Seen [Presence] in Urine [Presence] in Urine sediment by L sediment by Light microscopy Xray 08/29/2016 CT, Abdomen & Pelvis W <pending> Contrast Xray 06/09/2016 CT, Abdomen & Pelvis W <pending> Contrast 1 WANT LIVER CHECKED 2 Note: Persistent reduction for 3 months or more in an eGFR <60 mL/min/1.73 m2 defines CKD. Patients with eGFR values >/=60 mL/min/1.73 m2 may also have CKD if evidence of persistent proteinuria is present. The original MDRD equation for estimated GFR is not valid for patients less than 18 years of age. Additional information may be found at [email or web address]. 3 DIZZY, NAUSEA 4 Note: Persistent reduction for 3 months or more in an eGFR <60 mL/min/1.73 m2 defines CKD. Patients with eGFR values >/=60 mL/min/1.73 m2 may also have CKD if evidence of persistent proteinuria is present. The original MDRD equation for estimated GFR is not valid for patients less than 18 years of age. Additional information may be found at [email or web address]. 5 Values below the stated reference ranges of AST and ALT can be seen in normal populations. Clinical correlation is suggested. 6 Method: Quidel QuickVue One-Step Immunoassay 7 K75.4 K75.9 8 THERAPEUTIC INR RANGE: 2.0 - 3.0 DVT, Pulmonary embolus, prophylaxis against venous thrombosis or systemic embolization in high risk patients. 2.5 - 3.5 Mechanical heart valves 9 03/29/17 1439: NEUT% previously reported as: 75.7 H % Amended result called to: [] - 03/29/17 at 1439 03/29/17 1439: LYMPH % previously reported as: 16.5 L % Amended result called to: [] - 03/29/17 at 1439 03/29/17 1439: MONO % previously reported as: 7.2 % Amended result called to: [] - 03/29/17 at 1439 03/29/17 1439: EO% previously reported as: 0.5 % Amended result called to: [] - 03/29/17 at 1439 03/29/17 1439: BAS% previously reported as: 0.1 % Amended result called to: [] - 03/29/17 at 1439 10 Note: Persistent reduction for 3 months or more in an eGFR <60 mL/min/1.73 m2 defines CKD. Patients with eGFR values >/=60 mL/min/1.73 m2 may also have CKD if evidence of persistent proteinuria is present. The original MDRD equation for estimated GFR is not valid for patients less than 18 years of age. Additional information may be found at [email or web address]. 11 HEPATITIS, HYPERTHYROIDSM 12 THERAPEUTIC INR RANGE: 2.0 - 3.0 DVT, Pulmonary embolus, prophylaxis against venous thrombosis or systemic embolization in high risk patients. 2.5 - 3.5 Mechanical heart valves 13 Tests: LDH Instructions: 14 HEPATITIS,HYPERTHYROIDSM 15 Note: Persistent reduction for 3 months or more in an eGFR <60 mL/min/1.73 m2 defines CKD. Patients with eGFR values >/=60 mL/min/1.73 m2 may also have CKD if evidence of persistent proteinuria is present. The original MDRD equation for estimated GFR is not valid for patients less than 18 years of age. Additional information may be found at [email or web address]. 16 Note: Persistent reduction for 3 months or more in an eGFR <60 mL/min/1.73 m2 defines CKD. Patients with eGFR values >/=60 mL/min/1.73 m2 may also have CKD if evidence of persistent proteinuria is present. The original MDRD equation for estimated GFR is not valid for patients less than 18 years of age. Additional information may be found at [email or web address]. 17 THERAPEUTIC INR RANGE: 2.0 - 3.0 DVT, Pulmonary embolus, prophylaxis against venous thrombosis or systemic embolization in high risk patients. 2.5 - 3.5 Mechanical heart valves 18 Method: Sediplast Modified Westergren 19 Negative <0.60 Equivocal 0.60 - 0.69 Positive >0.69 20 Negative <30.0 Equivocal 30.0 - 34.9 Positive >34.9 A positive result is generally indicative of acute infection, reactivation or persistent IgM production. Performed at: - [facility] [address] [id number] Material Clerk: Gladis Turner MD, Phone: [phone] Performed at: - [facility] [address] [id number] Material Clerk: Daniel Meadows MD, Phone: [phone] 21 Negative <0.91 Equivocal 0.91 - 1.09 Positive >1.09 Note: Negative indicates no antibodies detected to HSV-2. Equivocal may suggest early infection. If clinically appropriate, retest at later date. Positive indicates antibodies detected to HSV-2. 22 Negative <0.91 Equivocal 0.91 - 1.09 Positive >1.09 Note: Negative indicates no antibodies detected to HSV-1. Equivocal may suggest early infection. If clinically appropriate, retest at later date. Positive indicates antibodies detected to HSV-1. 23 Negative <36.0 Equivocal 36.0 - 43.9 Positive >43.9 24 Negative < 9.0 Equivocal 9.0 - 10.9 Positive >10.9 25 Negative <18.0 Equivocal 18.0 - 21.9 Positive >21.9 26 Negative <18.0 Equivocal 18.0 - 21.9 Positive >21.9 27 EBV Interpretation Chart Interpretation EBV-IgM EA(D)-IgG VCA-IgG EBNA-IgG EBV Seronegative - - - - Early Phase + - - - Acute Primary + +or- + - Infection Convalescence/Past - +or- + + Infection Reactivated +or- + + + Infection + Antibody Present - Antibody Absent 28 Negative 0.0 - 20.0 Equivocal 20.1 - 24.9 Positive >24.9 Mitochondrial (M2) Antibodies are found in 90-96% of patients with primary biliary cirrhosis. 29 Negative 0 - 19 Weak positive 20 - 30 Moderate to strong positive >30 Actin Antibodies are found in 52-85% of patients with autoimmune hepatitis or chronic active hepatitis and in 22% of patients with primary biliary cirrhosis. 30 Negative 0 - 19 Weak Positive 20 - 30 Moderate to Strong Positive >30 31 Negative 0 - 19 Weak Positive 20 - 30 Moderate to Strong Positive >30 32 Negative 0 - 3 Weak Positive 4 - 10 Positive >10 Tissue Transglutaminase (tTG) has been identified as the endomysial antigen. Studies have demonstr- ated that endomysial IgA antibodies have over 99% specificity for gluten sensitive enteropathy. 33 Negative 0 - 5 Weak Positive 6 - 9 Positive >9 34 Negative <1:80 Borderline 1:80 Positive >1:80 35 Protein electrophoresis scan will follow via computer, mail, or house player delivery. 36 The SPE pattern reflects a polyclonal increase in gamma globulin due to numerous clones of plasma cells producing heterogeneous antibody in response to some form of antigenic stimulus. Hypergammaglob-ulinemia is found in a wide variety of infectious, non-infectious, and autoimmune disease states. Evidence of monoclonal protein is not apparent. 37 Note: Persistent reduction for 3 months or more in an eGFR <60 mL/min/1.73 m2 defines CKD. Patients with eGFR values >/=60 mL/min/1.73 m2 may also have CKD if evidence of persistent proteinuria is present. The original MDRD equation for estimated GFR is not valid for patients less than 18 years of age. Additional information may be found at [email or web address]. 38 THERAPEUTIC INR RANGE: 2.0 - 3.0 DVT, Pulmonary embolus, prophylaxis against venous thrombosis or systemic embolization in high risk patients. 2.5 - 3.5 Mechanical heart valves 39 Note: Persistent reduction for 3 months or more in an eGFR <60 mL/min/1.73 m2 defines CKD. Patients with eGFR values >/=60 mL/min/1.73 m2 may also have CKD if evidence of persistent proteinuria is present. The original MDRD equation for estimated GFR is not valid for patients less than 18 years of age. Additional information may be found at [email or web address]. 40 BULIRUBIN COUNT UP, EYES SKIN YELLOW, ITCHING 41 Acetaminophen concentration >150 ug/mL at four hours after ingestion and 50.0 ug/mL at twelve hours after ingestion are often associated with toxic reactions. 42 THERAPEUTIC INR RANGE: 2.0 - 3.0 DVT, Pulmonary embolus, prophylaxis against venous thrombosis or systemic embolization in high risk patients. 2.5 - 3.5 Mechanical heart valves 43 INFCE Result Units: s/co ratio Negative: < 0.8 Indeterminate: 0.8 - 0.9 Positive: > 0.9 The CDC recommends that a positive HCV antibody result be followed up with a HCV Nucleic Acid Amplification test (606852). Performed at: - [facility] [id number] Material Clerk: Gladis Turner MD, Phone: [phone] 44 POSSIBLE UROGENITAL CONTAMINATION. 45 URINE, CLEAN CATCH 46 Note: Persistent reduction for 3 months or more in an eGFR <60 mL/min/1.73 m2 defines CKD. Patients with eGFR values >/=60 mL/min/1.73 m2 may also have CKD if evidence of persistent proteinuria is present. The original MDRD equation for estimated GFR is not valid for patients less than 18 years of age. Additional information may be found at [email or web address]. 47 PSYCH SERVICES 48 Note: Persistent reduction for 3 months or more in an eGFR <60 mL/min/1.73 m2 defines CKD. Patients with eGFR values >/=60 mL/min/1.73 m2 may also have CKD if evidence of persistent proteinuria is present. The original MDRD equation for estimated GFR is not valid for patients less than 18 years of age. Additional information may be found at [email or web address]. 49 MENTAL HEALTH EVAL 50 URINE SPECIMENS ARE SCREENED AT THE LISTED CUTOFFS DRUG CLASS INITIAL TEST LEVEL Amphetamines 1000 ng/mL Barbiturates 200 ng/mL Benzodiazepines 200 ng/mL Cannabinoids 50 ng/mL Cocaine Metabolite 300 ng/mL Methadone 300 ng/mL Opiates 300 ng/mL Any PRESUMPTIVE POSITIVE findings are UNCONFIRMED. Confirmatory testing is suggested if findings are unexpected. Please contact laboratory if confirmatory testing is desired. SPECIMENS ARE HELD FOR 72 HOURS. 51 Tests: ddimer Instructions: 52 PSYCH SERVICES 53 Performed at: [facility] [id number] Material Clerk: Daniel Meadows MD, Phone: [phone] 54 Reference Guidelines*: Desirable: ........... < 200 mg/dL Borderline High: ..... 200-239 mg/dL High: ................ >=240 mg/dL * The National Cholesterol Education Program (NCEP) 55 Reference Guidelines*: Normal: ............. < 150 mg/dL Borderline High: .... 150-199 mg/dL High: ............... 200-499 mg/dL Very High: .......... > 500 mg/dL * Source: National Cholesterol Education Program (NCEP) 56 Reference Guidelines*: Low HDL: ..... < 40 mg/dL Normal: ..... 40-60 mg/dL Desirable: ... > 60 mg/dL *The National Cholesterol Education Program(NCEP) 57 Reference Guidelines*: Optimal:........... <100 mg/dL Near Optimal....... 100-129 mg/dL Borderline High.... 130-159 mg/dL High............... 160-189 mg/dL Very High.......... >=190 mg/dL * Source: National Cholesterol Education Program (NCEP) 58 MENTAL HEALTH EVAL 59 THERAPEUTIC RANGE: 15-30 mg/dL POTENTIAL TOXICITY VARIES WITH TIME FROM INGESTION. PLEASE CONSULT APPROPRIATE NOMOGRAM. 60 Acetaminophen concentration >150 ug/mL at four hours after ingestion and 50.0 ug/mL at twelve hours after ingestion are often associated with toxic reactions. 61 Note: Persistent reduction for 3 months or more in an eGFR <60 mL/min/1.73 m2 defines CKD. Patients with eGFR values >/=60 mL/min/1.73 m2 may also have CKD if evidence of persistent proteinuria is present. The original MDRD equation for estimated GFR is not valid for patients less than 18 years of age. Additional information may be found at www.[email or web address]. 62 <=0.49 ug/mL - Low likelihood of DIC, DVT or Pulmonary Embolism >0.49 ug/mL - Additional testing should be done to rule out DIC, DVT, or Pulmonary embolism as clinically indicated. ([facility] has established a 97.89% negative predictive value for thrombotic disease when a cutoff value of 0.5 ug/mL is used.) 63 10,000 - 50,000 CFU/mL 64 CULTURE TO FOLLOW 65 URINE, CLEAN CATCH 66 URINE, CLEAN CATCH 67 FIRST MORNING SPECIMENS GENERALLY CONTAIN THE HIGHEST CONCENTRATION OF HCG AND ARE RECOMMENDED FOR EARLY DETECTION OF . Method: Quidel QuickVue One-Step Immunoassay 68 URINE, CLEAN CATCH 69 Tests: acetaminophen, salicyclate Instructions: 70 acetaminophen, salicyclate 71 GEN ILL 72 FIRST MORNING SPECIMENS GENERALLY CONTAIN THE HIGHEST CONCENTRATION OF HCG AND ARE RECOMMENDED FOR EARLY DETECTION OF . Method: Quidel QuickVue One-Step Immunoassay 73 URINE, CLEAN CATCH 74 URINE, CLEAN CATCH 75 Note: Persistent reduction for 3 months or more in an eGFR <60 mL/min/1.73 m2 defines CKD. Patients with eGFR values >/=60 mL/min/1.73 m2 may also have CKD if evidence of persistent proteinuria is present. The original MDRD equation for estimated GFR is not valid for patients less than 18 years of age. Additional information may be found at [email or web address]. Procedures Date CPT Code Description Status 02/12/2017 43373 Echocardiogram Complete Completed 12/03/2014 22608 Anesthesia, Lower Abdomen Surgery Not Otherwise Spec Completed 07/17/2012 58251 Holter Monitor 24HR Inter/Report Completed 07/17/2012 56295 Holter Monitor 24HR Inter/Report Completed 06/26/2012 05814 Event Monitor Inter/Review Only Completed 03/11/2009 81909 Radiology, Elbow: Two Views Completed 02/18/2009 73647 Long Arm Cast Completed 02/19/2007 46996 Fracture distal radial-closed Completed 03/29/2005 63640 Fracture distal radial-closed Completed Encounters Type Date Location Provider CPT E/M Dx Office Visit 01/09/2018 [facility] KIRA Wang 89506 G56.01 2:45p M72.2 M46.1 Office Visit 11/07/2017 3:00p [facility] KIRA Wang 44627 K75.4 E03.2 Z30.09 E66.1 Z68.33 Office Visit 03/30/2017 10:45a [facility] KIRA Wang 91990 Z30.011 K75.4 E05.90 Office Visit 01/09/2017 1:30p [facility] KIRA Wang 93832 G43.109 Office Visit 12/05/2016 1:45p [facility] KIRA Mohan 27703 E28.2 F41.1 G43.109 Office Visit 03/11/2009 8:30a [facility] [place], 61593 [phone] M.Yayo, FACS Office Visit 02/18/2009 9:00a [facility] [place] Rayo, 67825 813.07 MHollie, FACS Plan of Care Future Appointment(s):11/08/2018 9:00 am - KIRA Mohan at [facility]01/09/2018 - DARBY MohanPG56.01 Carpal tunnel syndrome, right upper limbNew Medication:Splint Wrist Brace/Left-Right/ReversibleFollow up :nurse visit flu shot in fall first [employer] after age 23M72.2 Plantar fascial fibromatosisComments:OK to continue stretches, heal cups, ice and massage.M46.1 Sacroiliitis, not elsewhere classifiedComments:nicely improved
[2018-01-15] MEDS ORDERED: Ondansetron ODT TAB* 4 MG PO ONE (20:23)
--- NOTE | 2018-01-15 20:24 | UC ---
UC General HPI - HPI Summary HPI Summary: Pt c/o sudden onset of "waves of nausea" . Pt denies fever, chills, vomiting, abdominal pain, DIAZ, dizziness, or change in medications. Pt states that she has made some dietary changes of improved nutritional choices, she ahs stopped eating fast food and has tried to eat "healthier". - History of Current Complaint Chief Complaint: UCGI Stated Complaint: NAUSEA Time Seen by Provider: 01/15/18 20:06 Hx Last Menstrual Period: 01/07/18 Onset/Duration: Sudden Onset, Lasting Minutes Timing: Intermittent Episodes Lasting: Onset Severity: Mild Current Severity: Mild Pain Intensity: 0 Associated Signs & Symptoms: Positive: Nausea - Allergy/Home Medications Allergies/Adverse Reactions: Allergies Allergy/AdvReac Type Severity Reaction Status Date / Time Adhesive Tape AdvReac Redness Verified 01/15/18 20:03 metoclopramide [From Reglan] AdvReac shaky, Verified 01/15/18 20:03 nausea, dizzy Home Medications: Home Medications Levothyroxine TAB* [Synthroid 137 MCG TAB*] 137 mcg PO 0800 01/15/18 [History Confirmed 01/15/18] Norgestimate-Ethinyl Estradiol [Sprintec 28 Day Tablet] 1 tab PO DAILY 01/15/18 [History Confirmed 01/15/18] PARoxetine HCL TAB* [Paxil TAB*] 10 mg PO DAILY 01/15/18 [History Confirmed ] azaTHIOprine TAB(*) [Imuran TAB(*)] 50 mg PO TID 01/15/18 [History Confirmed ] PMH/Surg Hx/FS Hx/Imm Hx 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 - Surgical History Surgical History: Yes Surgery Procedure, Year, and Place: Cyst removed from Ovary - Family History Known Family History: Positive: Cardiac Disease - Social History Occupation: Employed Full-time Lives: With Family Alcohol Use: None Substance Use Type: None Smoking Status (MU): Never Smoked Tobacco Have You Smoked in the Last Year: No Review of Systems Constitutional: Negative Skin: Negative Eyes: Negative ENT: Negative Respiratory: Negative Cardiovascular: Negative Gastrointestinal: Nausea Genitourinary: Negative Motor: Negative Neurovascular: Negative Musculoskeletal: Negative Neurological: Negative Psychological: Negative Is Patient Immunocompromised?: No All Other Systems Reviewed And Are Negative: Yes Physical Exam Triage Information Reviewed: Yes Appearance: Well-Appearing Vital Signs: Initial Vital Signs Temp 98.6 F 01/15/18 19:58 Pulse 89 01/15/18 19:58 Resp 18 01/15/18 19:58 BP 133/75 01/15/18 19:58 Pulse Ox 100 01/15/18 19:58 Vital Signs Reviewed: Yes Eye Exam: Normal ENT Exam: Normal ENT: Positive: Normal ENT inspection Dental Exam: Normal Neck exam: Normal Respiratory Exam: Normal Cardiovascular Exam: Normal Abdominal Exam: Normal Musculoskeletal Exam: Normal Neurological Exam: Normal Psychological Exam: Normal Skin Exam: Normal Course/Dx - Differential Dx - Multi-Symptom Provider Diagnoses: nausea Discharge - Sign-Out/Discharge Documenting (check all that apply): Patient Departure All imaging exams completed and their final reports reviewed: No Studies - Discharge Plan Condition: Stable Disposition: HOME Prescriptions: Ondansetron TAB* [Zofran 4 MG Tab*] 4 mg PO Q8H PRN #30 tab PRN Reason: Nausea Patient Education Materials: Acute Nausea and Vomiting (ED) Referrals: Clarissa Trujillo NP [Primary Care Provider] - If Needed Additional Instructions: Please follow up with your PCP or return to clinic as needed. Please follow up with your heptologist as needed. - Billing Disposition and Condition Condition: STABLE Disposition: Home Attestation Statement User Type: Provider - I was available for consult. This patient was seen by the JASON. The patient was not presented to, seen by, or examined by me. -Ricki
[2018-01-15 21:10] VITALS: BP 122/75
== END 2018-01-15 20:55 | disposition home or self-care (01) ==
LOC: UCCORT 18:27
DX: R11.0 Nausea (principal); Z88.8 Allergy status to other drugs, medicaments and biological substances
CPT/HCPCS: 99212; A9270-GY; G0463

== ENCOUNTER 2018-03-08 09:39 | Emergency (ER) | payer OTHER ==
--- NOTE | 2018-03-08 11:33 | UC ---
Skin Complaint HPI - HPI Summary HPI Summary: Patient presents to urgent care with red painful area by right buttocks. Patient states she had small "pimples "approximately 2 weeks ago. Patient states they scabbed up. Patient states this morning she woke up with a red painful area. No drainage. No analgesia taken. Patient without history of abscesses. Patient is immunocompromised with autoimmune hepatitis. Patient denies fevers or chills. No analgesia taken. No other complaints. Patient medications reviewed this visit visit. Patient states she is not - History of Current Complaint Chief Complaint: UCSkin Time Seen by Provider: 03/08/18 11:23 Stated Complaint: PERSONAL Hx Obtained From: Patient Hx Last Menstrual Period: 03/03/18 Onset/Duration: Gradual Onset Skin Exposure Onset/Duration: Hours Ago Onset Severity: Moderate Pain Intensity: 7 Pain Scale Used: 0-10 Numeric - Allergy/Home Medications Allergies/Adverse Reactions: Allergies Allergy/AdvReac Type Severity Reaction Status Date / Time Adhesive Tape AdvReac Redness Verified 03/08/18 10:30 metoclopramide [From Reglan] AdvReac shaky, Verified 03/08/18 10:30 nausea, dizzy Home Medications: Home Medications Levothyroxine Sodium 125 mcg PO DAILY WITH MEAL 03/08/18 [History Confirmed 05/14] Review of Systems Constitutional: Negative Skin: Rash Is Patient Immunocompromised?: Yes All Other Systems Reviewed And Are Negative: Yes PMH/Surg Hx/FS Hx/Imm Hx Previously Healthy: Yes - Surgical History Surgical History: Yes Surgery Procedure, Year, and Place: Cyst removed from Ovary - Family History Known Family History: Positive: Cardiac Disease - Social History Occupation: Employed Full-time Lives: With Family Alcohol Use: None Substance Use Type: None Smoking Status (MU): Never Smoked Tobacco Have You Smoked in the Last Year: No Physical Exam - Summary Physical Exam Summary: Vital Signs Reviewed: Yes A+Ox3, no distress Eyes: Conjunctiva Clear ENT: Hearing grossly normal neck: supple Respiratory: Positive: CTA throughout no w/r no increased WOB. No respiratory distress, No accessory muscle use Cardiovascular: skin color reflect adequate perfusion RRR nl s1/s2 no m/r Musculoskeletal Exam: [place] x 4 without difficulty Neurological: Positive: Alert, ambulatory without difficulty Psychological: Positive: Normal Response To Family Skin: Positive: no rash, no ecchymosis Right buttock pt with 2x4 cm are of erythema, warm, mild induration. no fluctuance Triage Information Reviewed: Yes Vital Signs: Initial Vital Signs Temp 97.5 F 03/08/18 10:27 Pulse 87 03/08/18 10:27 Resp 18 03/08/18 10:27 BP 133/69 03/08/18 10:27 Pulse Ox 99 03/08/18 10:27 Diagnostics - Radiology No standard instances Radiology Interpretation Completed By: Radiologist - Patient Name: DILEEP GAMEZ Medical Record#: [id number] Ordering Physician: Shanua Spencer MD Acct.#: [id number] : 1995 Age: 22 Sex: F Location: [facility] Exam Date: 03/08/18 1138 ADM Status: REG ER Order Information: US SOFT TISSUE LIMITED EXT-RT Accession Number: [id number] CPT: 91043 HISTORY: soft tissue cellulitis, ? Abscess COMPARISONS: None. TECHNIQUE: Multiple transverse and longitudinal ultrasound images were obtained of the area of clinical abnormality using grayscale and color Doppler imaging. FINDINGS: In the area of clinical abnormality along the right gluteal cleft, there is heterogeneously hypoechoic lesion measuring 0.8 x 0.4 x 0.4 cm in size without evidence of fluid collection. There is increased echogenicity of the adjacent fat IMPRESSION: IN THE AREA OF CLINICAL ABNORMALITY, THERE IS A HYPOECHOIC LESION MEASURING UP TO 0.8 CM IN SIZE WITH ADJACENT INFLAMMATORY CHANGE SUGGESTIVE OF PHLEGMON WITHOUT DEFINITIVE LOCULATED FLUID COLLECTION TO SUGGEST ABSCESS. <Electronically signed by Rajat Rhoades MD in OV> 03/08/18 1210 Dictated By: Rajat Rhoades MD Dictated Date/Time: 03/08/18 1210 Transcribed Date/Time: 03/08/18 1209 Copy to: CC:Maggy Trujillo BILINGUAL RECEPTIONIST; Shauna Spencer MD Imaging - [facility] - [facility] [address] [address] ph [phone] ph ([phone] ph ([phone]) This report is only to be considered final once signed by the Provider(s) as displayed in the "<Electronically Signed by >" field (s). Absence of a signature indicates the report is in a draft status and still needs to be finalized. In the event this document was created by someone other than the signing Provider, the individual initiating the document will be listed in the "Entered by:" or "Dictated by:" forbes. 1 of 1 Re-Evaluation - Re-Evaluation First Eval Re-Evaluation Time: 12:17 Comment: no collection to drain. moist soaks. motrin/apap. bactrom. return precautions Course/Dx - Course Course Of Treatment: Patient presents to urgent care with area of cellulitis on her right buttock. Patient is immunocompromised on immunosuppressants. Patient reports pain to palpation. No analgesia taken. No drainage. No history of trauma there. We'll check ultrasound to make sure that there is no fluid pocket. Patient with induration but no palpable fluctuance. If there is a fluid collection we'll drain otherwise heat soaks. Motrin Tylenol. Antibiotics. Strict return precautions. Patient comfortable in agreement with plan. - Diagnoses Provider Diagnoses: cellulitis Discharge - Sign-Out/Discharge Documenting (check all that apply): Patient Departure All imaging exams completed and their final reports reviewed: Yes - Discharge Plan Condition: Stable Disposition: HOME Prescriptions: Sulfamethox/Trimethoprim DS* [Bactrim DS 800/160 TAB*] 1 tab PO BID #20 tab Patient Education Materials: Cellulitis (ED) Referrals: Clarissa Trujillo NP [Primary Care Provider] - Additional Instructions: - Take antibiotics as prescribed until gone - Okay to alternate ibuprofen (Advil, Motrin) and tylenol every 3hours for pain. Take with food. Do NOT take for more then 4-5 days - Apply a moist, warm cloth to the affected area 2-3 times a day - monitor for worsening infection - increased reddness, red streaking, fever - if you have any questions you should go to the emergency department - schedule a recheck with your doctor for the end of next week - Billing Disposition and Condition Condition: STABLE Disposition: Home Images Front/Back of Body, Lg (Mobile): 1 - cellulitis, induration
[2018-03-08 12:12] VITALS: BP 131/75
[2018-03-08] MEDS ORDERED: Acetaminophen TAB* 325 MG PO ONE (12:12)
[2018-03-08] MEDS ORDERED: Sulfamethox/Trimethoprim DS 800/160* TAB PO ONE (12:13)
--- NOTE | 2018-03-08 12:14 | RAD ---
HISTORY: soft tissue cellulitis, ? Abscess COMPARISONS: None. TECHNIQUE: Multiple transverse and longitudinal ultrasound images were obtained of the area of clinical abnormality using grayscale and color Doppler imaging. FINDINGS: In the area of clinical abnormality along the right gluteal cleft, there is heterogeneously hypoechoic lesion measuring 0.8 x 0.4 x 0.4 cm in size without evidence of fluid collection. There is increased echogenicity of the adjacent fat IMPRESSION: IN THE AREA OF CLINICAL ABNORMALITY, THERE IS A HYPOECHOIC LESION MEASURING UP TO 0.8 CM IN SIZE WITH ADJACENT INFLAMMATORY CHANGE SUGGESTIVE OF PHLEGMON WITHOUT DEFINITIVE LOCULATED FLUID COLLECTION TO SUGGEST ABSCESS.
== END 2018-03-08 12:22 | disposition home or self-care (01) ==
LOC: UCCORT 09:39
DX: L03.317 Cellulitis of buttock (principal); Z88.8 Allergy status to other drugs, medicaments and biological substances
CPT/HCPCS: 99212; A9270-GY; G0463

== ENCOUNTER 2018-04-14 15:29 | Emergency (ER) | payer OTHER ==
[2018-04-14 16:54] VITALS: BP 132/82
--- NOTE | 2018-04-14 17:03 | UC ---
Throat Pain/Nasal Nikolai HPI - HPI Summary HPI Summary: sinus congestion and nasal pain, sore throat in the mornings. cough no fever. for the past week. - History of Current Complaint Chief Complaint: UCRespiratory Stated Complaint: SINUS CONCERN Time Seen by Provider: 04/14/18 16:47 Hx Obtained From: Patient Hx Last Menstrual Period: 03/31/18 Onset/Duration: Sudden Onset, Lasting Days - 7 Severity: Moderate Pain Intensity: 3 Cough: Nonproductive Associated Signs & Symptoms: Positive: Dysphagia, Sinus Discomfort, Nasal Discharge - Allergies/Home Medications Allergies/Adverse Reactions: Allergies Allergy/AdvReac Type Severity Reaction Status Date / Time Adhesive Tape AdvReac Redness Verified 04/14/18 16:44 metoclopramide [From Reglan] AdvReac shaky, Verified 04/14/18 16:44 nausea, dizzy Home Medications: Home Medications Loratadine [Claritin] 10 mg PO DAILY 04/14/18 [History Confirmed 04/14/18] PMH/Surg Hx/FS Hx/Imm Hx Previously Healthy: Yes - Surgical History Surgical History: Yes Surgery Procedure, Year, and Place: Cyst removed from Ovary - Family History Known Family History: Positive: Cardiac Disease - Social History Alcohol Use: None Substance Use Type: None Smoking Status (MU): Never Smoked Tobacco Have You Smoked in the Last Year: No Review of Systems All Other Systems Reviewed And Are Negative: Yes Constitutional: Positive: Negative Skin: Positive: Negative Eyes: Positive: Negative ENT: Positive: Sore Throat, Ear Ache, Nasal Discharge, Sinus Congestion Respiratory: Positive: Cough Cardiovascular: Positive: Negative Gastrointestinal: Positive: Negative Genitourinary: Positive: Negative Motor: Positive: Negative Neurovascular: Positive: Negative Musculoskeletal: Positive: Negative Neurological: Positive: Negative Psychological: Positive: Negative Is Patient Immunocompromised?: No Physical Exam Triage Information Reviewed: Yes Appearance: No Pain Distress, Well-Nourished, Ill-Appearing Vital Signs: Initial Vital Signs Temp 97.9 F 04/14/18 16:48 Pulse 92 04/14/18 16:48 Resp 20 04/14/18 16:48 BP 132/82 04/14/18 16:48 Pulse Ox 99 04/14/18 16:48 Vital Signs Reviewed: Yes Eye Exam: Normal ENT: Positive: Pharyngeal erythema, Nasal congestion, Nasal drainage, TM bulging , TM dull, TM red - right, Sinus tenderness Dental Exam: Normal Neck exam: Normal Neck: Positive: Supple, Nontender, No Lymphadenopathy Respiratory Exam: Normal Respiratory: Positive: Chest non-tender, Lungs clear, Normal breath sounds Cardiovascular Exam: Normal Cardiovascular: Positive: RRR, No Murmur, Pulses Normal Abdominal Exam: Normal Abdomen Description: Positive: Nontender, No Organomegaly, Soft Bowel Sounds: Positive: Present Musculoskeletal Exam: Normal Neurological Exam: Normal Psychological Exam: Normal Skin Exam: Normal Throat Pain/Nasal Course/Dx - Course Course Of Treatment: hx obtained, exam perfomred, meds reivewed, treated for otitis media left - Differential Dx/Diagnosis Provider Diagnoses: left otitis media. sinusitis Discharge - Sign-Out/Discharge Documenting (check all that apply): Patient Departure All imaging exams completed and their final reports reviewed: No Studies - Discharge Plan Condition: Stable Disposition: HOME Patient Education Materials: Sinusitis (ED) Referrals: Clarissa Trujillo NP [Primary Care Provider] - Additional Instructions: 1. take the medication as prescribed 2. Clear fluids and get some rest 3. COntinue with the allergie medication. - Billing Disposition and Condition Condition: STABLE Disposition: Home
== END 2018-04-14 17:10 | disposition home or self-care (01) ==
LOC: UCCORT 15:29
DX: H66.92 Otitis media, unspecified, left ear (principal); J32.9 Chronic sinusitis, unspecified; Z88.8 Allergy status to other drugs, medicaments and biological substances; Z91.048 Other nonmedicinal substance allergy status
CPT/HCPCS: 99212; G0463

== ENCOUNTER 2018-06-22 13:34 | Emergency (ER) | payer OTHER ==
--- NOTE | 2018-06-22 16:01 | UC ---
Respiratory Complaint HPI - HPI Summary HPI Summary: Patient complaining of sinus congestion and cough for the past few weeks. - History of Current Complaint Stated Complaint: COUGH Time Seen by Provider: 06/22/18 15:45 Hx Obtained From: Patient Hx Last Menstrual Period: 03/31/18 ?: No Onset/Duration: Sudden Onset, Lasting Weeks Timing: Constant Severity Initially: Mild Severity Currently: Moderate Character: Cough: Nonproductive Aggravating Factors: Deep Breaths, Recumbent Position Alleviating Factors: Nothing Associated Signs And Symptoms: Positive: URI, Nasal Congestion, Sinus Discomfort - Allergies/Home Medications Allergies/Adverse Reactions: Allergies Allergy/AdvReac Type Severity Reaction Status Date / Time Adhesive Tape AdvReac Redness Verified 06/22/18 15:54 metoclopramide [From Reglan] AdvReac shaky, Verified 06/22/18 15:54 nausea, dizzy PMH/Surg Hx/FS Hx/Imm Hx Previously Healthy: Yes - Surgical History Surgical History: Yes Surgery Procedure, Year, and Place: Cyst removed from Ovary - Family History Known Family History: Positive: Cardiac Disease - Social History Alcohol Use: None Substance Use Type: None Smoking Status (MU): Never Smoked Tobacco Have You Smoked in the Last Year: No Review of Systems All Other Systems Reviewed And Are Negative: Yes Constitutional: Positive: Negative Skin: Positive: Negative Eyes: Positive: Negative ENT: Positive: Sore Throat, Nasal Discharge, Sinus Congestion Respiratory: Positive: Cough Cardiovascular: Positive: Negative Gastrointestinal: Positive: Negative Genitourinary: Positive: Negative Motor: Positive: Negative Neurovascular: Positive: Negative Musculoskeletal: Positive: Negative Neurological: Positive: Headache Psychological: Positive: Negative Is Patient Immunocompromised?: No Physical Exam Triage Information Reviewed: Yes Appearance: Well-Nourished, Ill-Appearing, Pain Distress Vital Signs Reviewed: Yes Eye Exam: Normal ENT: Positive: Pharyngeal erythema - with PND, Nasal congestion, TM bulging, TM dull, Sinus tenderness Dental Exam: Normal Neck exam: Normal Neck: Positive: Supple, Nontender, No Lymphadenopathy Respiratory Exam: Normal Respiratory: Positive: Chest non-tender, Lungs clear, Normal breath sounds Cardiovascular Exam: Normal Cardiovascular: Positive: RRR, No Murmur, Pulses Normal Abdominal Exam: Normal Bowel Sounds: Positive: Present Musculoskeletal Exam: Normal Neurological Exam: Normal Psychological Exam: Normal Skin Exam: Normal Respiratory Course/Dx - Course Course Of Treatment: hx obtainex, exam performed ,meds reviewed, treated for sinusitis - Differential Dx/Diagnosis Differential Diagnosis/HQI/PQRI: Asthma, Bronchitis, Laryngitis, Sinusitis Provider Diagnosis: Sinusitis Discharge - Sign-Out/Discharge Documenting (check all that apply): Patient Departure All imaging exams completed and their final reports reviewed: No Studies - Discharge Plan Condition: Stable Disposition: HOME Prescriptions: Amoxicillin PO (*) [Amoxicillin 500 MG CAP*] 500 mg PO Q12H #20 cap Patient Education Materials: Sinusitis (ED) Referrals: Clarissa Trujillo NP [Primary Care Provider] - Additional Instructions: 1. take the medication as prescribed. 2. Increase fluid intake 3. Salt water gargles a couple times a day - Billing Disposition and Condition Condition: STABLE Disposition: Home
[2018-06-22 16:02] VITALS: BP 119/64
== END 2018-06-22 16:10 | disposition home or self-care (01) ==
LOC: UCCORT 13:34
DX: J32.9 Chronic sinusitis, unspecified (principal); J34.89 Other specified disorders of nose and nasal sinuses; H73.899 Other specified disorders of tympanic membrane, unspecified ear; Z91.09 Other allergy status, other than to drugs and biological substances; Z88.8 Allergy status to other drugs, medicaments and biological substances
CPT/HCPCS: 99212; G0463

== ENCOUNTER 2018-08-04 15:27 | Emergency (ER) | payer OTHER ==
[2018-08-04] MEDS ORDERED: Cephalexin CAP* 500 MG PO ONE (17:28)
--- NOTE | 2018-08-04 17:34 | UC ---
Skin Complaint HPI - HPI Summary HPI Summary: Patient had a small pimple on her chest between her breasts. she attempted to pop it and got a small amount of drainage, now the abscess is bigger and painful. - History of Current Complaint Time Seen by Provider: 08/04/18 17:21 Stated Complaint: SKIN CONCERN Hx Obtained From: Patient Hx Last Menstrual Period: 03/31/18 ?: No Onset/Duration: Sudden Onset, Lasting Days Skin Exposure Onset/Duration: Days Ago Timing: Constant Onset Severity: Mild Current Severity: Moderate Location: Discrete Character: Redness, Raised, Painful Aggravating Factor(s): Touch Alleviating Factor(s): Nothing - Allergy/Home Medications Allergies/Adverse Reactions: Allergies Allergy/AdvReac Type Severity Reaction Status Date / Time Adhesive Tape AdvReac Redness Verified 08/04/18 18:00 metoclopramide [From Reglan] AdvReac shaky, Verified 08/04/18 18:00 nausea, dizzy PMH/Surg Hx/FS Hx/Imm Hx Previously Healthy: Yes - Surgical History Surgical History: Yes Surgery Procedure, Year, and Place: Cyst removed from Ovary - Family History Known Family History: Positive: Cardiac Disease - Social History Alcohol Use: None Substance Use Type: None Smoking Status (MU): Never Smoked Tobacco Have You Smoked in the Last Year: No Review of Systems All Other Systems Reviewed And Are Negative: Yes Constitutional: Positive: Negative Skin: Positive: Other - abscess Eyes: Positive: Negative ENT: Positive: Negative Respiratory: Positive: Negative Cardiovascular: Positive: Negative Gastrointestinal: Positive: Negative Genitourinary: Positive: Negative Motor: Positive: Negative Neurovascular: Positive: Negative Musculoskeletal: Positive: Negative Neurological: Positive: Negative Psychological: Positive: Negative Is Patient Immunocompromised?: No Physical Exam Triage Information Reviewed: Yes Appearance: Well-Appearing, Well-Nourished, Pain Distress Vital Signs Reviewed: Yes Eye Exam: Normal ENT Exam: Normal Dental Exam: Normal Neck exam: Normal Respiratory Exam: Normal Respiratory: Positive: Chest non-tender, Lungs clear, Normal breath sounds Cardiovascular Exam: Normal Cardiovascular: Positive: RRR, No Murmur, Pulses Normal Abdominal Exam: Normal Abdomen Description: Positive: Nontender, No Organomegaly, Soft Bowel Sounds: Positive: Present Musculoskeletal Exam: Normal Neurological Exam: Normal Psychological Exam: Normal Skin: Positive: Other - small red area of induration between breast, scab has formed on top Course/Dx - Course Course Of Treatment: hx obtained, exam performed ,meds reviewed, treated for a abscess - Differential Diagnoses - Skin Complaint Differential Diagnoses: Abscess, Cellulitis - Diagnoses Provider Diagnosis: Abscess Discharge - Sign-Out/Discharge Documenting (check all that apply): Patient Departure All imaging exams completed and their final reports reviewed: No Studies - Discharge Plan Condition: Stable Disposition: HOME Prescriptions: Cephalexin CAP* [Keflex CAP*] 500 mg PO BID #13 cap Patient Education Materials: Abscess (ED) Referrals: Clarissa Trujillo NP [Primary Care Provider] - Additional Instructions: 1. take the medication as prescribed. 2. Increase fluids with antibiotic use 3. warm compresses to the chest multiple times a day - Billing Disposition and Condition Condition: STABLE Disposition: Home - Attestation Statements Provider Attestation: I was available for consult. This patient was seen by the JASON. The patient was not presented to , seen by or examined by fl -Karime Ward MD
[2018-08-04 18:00] VITALS: BP 129/74
== END 2018-08-04 18:04 | disposition home or self-care (01) ==
LOC: UCCORT 15:27
DX: L02.213 Cutaneous abscess of chest wall (principal)
CPT/HCPCS: 99212; A9270-GY; G0463

== ENCOUNTER 2018-09-05 10:38 | Emergency (ER) | payer OTHER ==
[2018-09-05 10:58] VITALS: BP 116/72
[2018-09-05] MEDS ORDERED: Naproxen TAB* 250 MG PO ONE (11:35)
[2018-09-05] MEDS ORDERED: Ondansetron ODT TAB* 4 MG PO ONE (11:35)
[2018-09-05] MEDS ORDERED: Al Hydrox/Mg Hydrox/Simet LIQ* 30 ML UDC PO ONE (12:15)
--- NOTE | 2018-09-05 12:22 | UC ---
Abdominal Pain Female HPI - HPI Summary HPI Summary: 22-year-old female presents with complaints of headache, nausea, and vomiting. States had onset of headache with some general malaise and chills last evening. This morning developed some nausea and had one episode of vomiting. Patient has a history of migraine headache and states this is very similar however she does not typically have vomiting with her migraines. She also complains of some mild epigastric "burning" and lightheadedness when changing positions. Denies fever, ear pain, vertigo, sore throat, nasal congestion, cough, back or flank pain, dysuria, frequency, urgency, or hematuria. - History of Current Complaint Chief Complaint: UCGeneralIllness Stated Complaint: NAUSEA,VOMITING,HEADACHE,ACHEY Time Seen by Provider: 09/05/18 11:03 Hx Obtained From: Patient Hx Last Menstrual Period: 08/14/18 Pain Intensity: 7 Allergies/Adverse Reactions: Allergies Allergy/AdvReac Type Severity Reaction Status Date / Time Adhesive Tape AdvReac Redness Verified 09/05/18 10:54 metoclopramide [From Reglan] AdvReac shaky, Verified 09/05/18 10:54 nausea, dizzy PMH/Surg Hx/FS Hx/Imm Hx Endocrine History: Hypothyroidism, Other - PCOS GI/ History: Other - Autoimmune hepatitis Neurological History: Migraine Psychological History: Depression - Surgical History Surgical History: Yes Surgery Procedure, Year, and Place: Right Ovarian Cyst, [place] - Family History Known Family History: Positive: Cardiac Disease - Social History Occupation: Employed Full-time Lives: With Family Alcohol Use: None Substance Use Type: None Smoking Status (MU): Never Smoked Tobacco Have You Smoked in the Last Year: No Review of Systems All Other Systems Reviewed And Are Negative: Yes Constitutional: Positive: Fatigue. Negative: Fever, Chills Skin: Negative: Rash Eyes: Negative: Drainage, Eye Redness ENT: Negative: Sore Throat, Ear Ache, Nasal Discharge, Sinus Congestion, Sinus Pain/Tenderness Respiratory: Negative: Shortness Of Breath, Cough Cardiovascular: Negative: Palpitations, Chest Pain Gastrointestinal: Positive: Abdominal Pain - Epigastric, Vomiting, Nausea. Negative: Diarrhea Genitourinary: Negative: Dysuria, Hematuria, Frequency, Urgency, Vaginal/Penile Discharge, Abnormal Bleeding Musculoskeletal: Positive: Negative Neurological: Positive: Negative Is Patient Immunocompromised?: No Physical Exam - Summary Physical Exam Summary: GENERAL APPEARANCE: Well developed, well nourished, alert and cooperative, and appears to be in no acute distress. EYES: Conjunctiva clear. No drainage. PERRL. EOM intact. EARS: External auditory canals and tympanic membranes clear, hearing grossly intact. NOSE: No nasal discharge. THROAT: Pharynx normal. No tonsilar inflammation, swelling, exudate, or lesions. Uvula midline. Oral cavity normal. Teeth and gingiva in good general condition. NECK: Neck supple, non-tender without lymphadenopathy. CARDIAC: Normal S1 and S2. No S3, S4 or murmurs. Rhythm is regular. There is no peripheral edema, cyanosis or pallor. Extremities are warm and well perfused. Capillary refill is less than 2 seconds. Peripheral pulses intact. LUNGS: Clear to auscultation without rales, rhonchi, wheezing or diminished breath sounds. ABDOMEN: Positive bowel sounds. Soft, nondistended, nontender. No guarding or rebound. No masses or hepatosplenomegally. No CVA tenderness. MUSKULOSKELETAL: ROM intact to all extremities. No joint erythema or tenderness. Normal muscular development. Normal gait. NEUROLOGICAL: CN II-XII intact. Strength and sensation symmetric and intact throughout. Reflexes 2+ throughout. SKIN: Skin normal color, texture and turgor with no lesions or eruptions. Triage Information Reviewed: Yes Vital Signs: Initial Vital Signs Temp 98.2 F 09/05/18 10:52 Pulse 92 09/05/18 10:52 Resp 16 09/05/18 10:52 BP 116/72 09/05/18 10:52 Pulse Ox 99 09/05/18 10:52 Vital Signs Reviewed: Yes Re-Evaluation - Re-Evaluation First Eval Re-Evaluation Time: 12:15 Comment: Patient states nasuea has improved with ondansetron. Headache unchanged at this time. Continues to have some epigastric burning. Taking PO fluids without further episodes of vomiting. Second Eval Re-Evaluation Time: 12:45 Change: Improved Comment: Patient states headache improved. Epigastric burning subsided with Maalox. Continues to tolerate PO fluids. Will d/c home to continue oral rehydration. Abd Pain Female Course/Dx - Course Course Of Treatment: 22-year-old female presents with complaints of headache, nausea, and vomiting. States had onset of headache with some general malaise and chills last evening. This morning developed some nausea and had one episode of vomiting. Patient has a history of migraine headache and states this is very similar however she does not typically have vomiting with her migraines. She also complains of some mild epigastric "burning" and lightheadedness when changing positions. Denies fever, ear pain, vertigo, sore throat, nasal congestion, cough, back or flank pain, dysuria, frequency, urgency, or hematuria. Afebrile. VSS. Exam was overall unremarkable. POC UA showed 1+ leukocyte esterase. Urine negative. Urine culture pending. Discussed with patient the broad differential for her symptoms including the most likely causes including migraine, gastroenteritis, UTI, and viral syndrome as well as treatment options including IV hydration and medications. She elected not to do IV hydration therefore she was given ondansetron 8 mg PO for the nausea and naproxen 500 mg PO for the headache. Her nausea and headache did improve and she was able to take PO fluids with no further episodes of vomiting. She was also given Maalox 30 ml for the epigastric burning with improvement. Discussed starting treatment for a possible UTI with the patient but she is electing to wait for the culture results before starting antibiotics. Will discharge her home with ondansetron 4 mg every 6 hours as needed for N/V and have her do oral rehydration. She is to follow up with her PCP in 3-5 days. Anticipatory guidance and warning symptoms reviewed with patient verbalizes understanding and agrees with POC. - Differential Dx/Diagnosis Differential Diagnosis: Hepatitis, Pancreatitis, Peptic Ulcer Disease, , Urinary Tract Infection, Other - gastroenteritis Provider Diagnosis: Headache, Nausea & vomiting Discharge - Sign-Out/Discharge Documenting (check all that apply): Patient Departure All imaging exams completed and their final reports reviewed: No Studies - Discharge Plan Condition: Stable Disposition: HOME Prescriptions: Ondansetron TAB* [Zofran 4 MG Tab*] 4 mg PO Q6H PRN #9 tab PRN Reason: Nausea/Vomiting Patient Education Materials: Acute Headache (ED), Acute Nausea and Vomiting (ED ) Forms: *Work Release Referrals: Clarissa Trujillo NP [Primary Care Provider] - 3 Days (If no improvement in symptoms.) Additional Instructions: The urine test performed in the clinic today showed evidence of a possible urinary tract infection. We will send the urine for culture and will contact you if treatment is needed. Take acetaminophen (Tylenol) or ibuprofen (Advil, Motrin) according to directions as needed for your headache. Take ondansetron 4 mg 1 tab every 6 hour as needed for nausea or vomiting. You were given a dose in the clinic at 11:40 am. Drink plenty of fluids. Try to drink small amounts frequently to avoid filling your stomach to full which can cause vomiting. If you are still having vomiting, start with a clear liquid diet including soup broths, Jello, popsicles, and leonardo-minor with carbonation stirred out of it. You may then advance to a bland diet including saltine crackers, toast, bananas , rice, and applesauce. Then return to a normal diet as tolerated. Follow up here or with your primary care provider in 3-5 days if symptoms persist. Seek immediate medical attention in the emergency room if you develop fever greater than 100.5 F, have worsening headache, visual disturbances, confusion, slurred or difficulty speaking, weakness, numbness, or tingling in your arms or legs, have severe abdominal pain, persistent vomiting, blood in your vomit or stool, or any worsening of symptoms. - Billing Disposition and Condition Condition: STABLE Disposition: Home - Attestation Statements Provider Attestation: I was available for consult. This patient was seen by the JASON. The patient was not presented to, seen by, or examined by me. -Ricki
== END 2018-09-05 13:06 | disposition home or self-care (01) ==
LOC: UCCORT 10:38
DX: R51 Headache (principal); R11.2 Nausea with vomiting, unspecified; R10.13 Epigastric pain; R53.83 Other fatigue; Z32.02 Encounter for pregnancy test, result negative; Z88.8 Allergy status to other drugs, medicaments and biological substances; Z91.048 Other nonmedicinal substance allergy status
CPT/HCPCS: 81003; 84702; 87077; 87086; 99212; A9270-GY; G0463

== ENCOUNTER 2018-09-25 08:06 | Emergency (ER) | payer OTHER ==
--- NOTE | 2018-09-25 09:03 | UC ---
UC General HPI - HPI Summary HPI Summary: Here with Mother (who works clerical here) c/o 3 days of being exhausted, low back pain more predominant on the left, abdominal cramping like she is getting her period but she just finished her period, LMP: 09/20. No dysuria or urinary symptoms. NO vaginal discharge or itching. No fever. This AM she felt nauseated but did not vomiting. No diarrhea. Chills but no fevers. Hx of ovarian cysts, one that ruptured requiring surgery in 2013. Meds; REviewed - History of Current Complaint Chief Complaint: UCAbdominalPain Stated Complaint: BACK PAIN/CHILLS/NAUSEA Time Seen by Provider: 09/25/18 08:25 Hx Last Menstrual Period: 09/17/18 Pain Intensity: 6 - Allergy/Home Medications Allergies/Adverse Reactions: Allergies Allergy/AdvReac Type Severity Reaction Status Date / Time Adhesive Tape AdvReac Redness Verified 09/25/18 08:22 metoclopramide [From Reglan] AdvReac shaky, Verified 09/25/18 08:22 nausea, dizzy PMH/Surg Hx/FS Hx/Imm Hx Previously Healthy: Yes Endocrine History: Hypothyroidism GI/ History: Other - autoimmune hepatitis, PCOS Psychological History: Anxiety, Depression - Surgical History Surgical History: Yes Surgery Procedure, Year, and Place: Right Ovarian Cyst, [place] - Family History Known Family History: Positive: Cardiac Disease - Social History Alcohol Use: None Substance Use Type: None Smoking Status (MU): Never Smoked Tobacco Have You Smoked in the Last Year: No Review of Systems All Other Systems Reviewed And Are Negative: Yes Constitutional: Positive: Chills ENT: Positive: Nasal Discharge Respiratory: Positive: Negative Gastrointestinal: Positive: Abdominal Pain Genitourinary: Positive: Negative Physical Exam Triage Information Reviewed: Yes Appearance: Well-Appearing Vital Signs: Initial Vital Signs Temp 98.1 F 09/25/18 08:16 Pulse 85 09/25/18 08:16 Resp 16 09/25/18 08:16 BP 114/72 09/25/18 08:16 Pulse Ox 99 09/25/18 08:16 ENT: Positive: Normal ENT inspection Neck: Positive: Supple Respiratory: Positive: Lungs clear, Normal breath sounds Cardiovascular: Positive: RRR, No Murmur Abdomen Description: Positive: Soft, Other: - tenderness in suprapubic area Musculoskeletal Exam: Other - paraspinal tenderness in b/l lower lumbar region, more prominent on left side Diagnostics - Radiology Pelvic Ultrasound Radiology Interpretation Completed By: Radiologist Summary of Radiographic Findings: ultrasound no acute sonographic pathology in pelvis Course/Dx - Course Course Of Treatment: This is a 23 yr old with PMhx of ovarian cysts who presents with back pain and abdominal cramping assessment U/A; Unremarkable +1 LE Neg HCG U/S: unremarkable Unclear etiology. Would not tx for UTI until culture - with no dysuria or urinary symptoms Will obtain labs (r/o any recurrence of autoimmune hepatitis) - CBC, PTT, INR, CMP Plan We will contact you if your lab work is abnormal Continue ibuprofen as needed for pain as directed If symptoms persist or worsen, recommend follow up with your PCP or go to the ER /Urgent care - Diagnoses Provider Diagnosis: Back pain, Fatigue Discharge - Sign-Out/Discharge Documenting (check all that apply): Patient Departure All imaging exams completed and their final reports reviewed: Yes - Discharge Plan Condition: Good Disposition: HOME Forms: *Work Release Referrals: Clarissa Trujillo NP [Primary Care Provider] - Additional Instructions: We will contact you if your lab work is abnormal Continue ibuprofen as needed for pain as directed If symptoms persist or worsen, recommend follow up with your PCP or go to the ER /Urgent care - Billing Disposition and Condition Condition: GOOD Disposition: Home
[2018-09-25 10:15] VITALS: BP 115/63
[2018-09-25 13:50] LABS: ABS Basophils 0 10^3/ul (0-0.2); ABS Eosinophils 0.3 10^3/ul (0-0.6); ABS Lymphocytes 1.6 10^3/ul (1.0-4.8); ABS Monocytes 0.4 10^3/ul (0-0.8); ABS Neutrophils 4.4 10^3/ul (1.5-7.7); ABS Nucleated RBC 0 10^3/ul; Eosinophil % 5.1 %; Hematocrit 42 % (35-47); Hemoglobin 14.3 g/dL (12.0-16.0); Lymphocyte % 23.3 %; Mean Corpuscular HGB Conc 34 g/dL (31-36); Mean Corpuscular Hemoglobin 30 pg (27-31); Mean Corpuscular Volume 86 fL (80-97); Mean Platelet Volume 7.7 fL (7.4-10.4); Nucleated Red Blood Cells % 0.2; Platelet Count 257 10^3/uL (150-450); Red Blood Count 4.85 10^6 /uL (3.70-4.87); Red Cell Distribution Width 13 % (10.5-15); White Blood Count 6.8 10^3/uL (3.5-10.8)
[2018-09-25 14:07] LABS: Albumin 4.2 g/dL (3.2-5.2); Calcium 9.1 mg/dL (8.6-10.3); Potassium 3.9 mmol/L (3.5-5.0); Total Bilirubin 0.7 mg/dL (0.2-1.0)
[2018-09-25 14:13] LABS: Albumin/Globulin Ratio 1.4 (1-3); BUN/Creatinine Ratio 9.2 (8-20); EGFR African American 139.2 (>60); EGFR Non-African American 115.1 (>60); Total Protein 7.2 g/dL (6.4-8.9)
[2018-09-25 14:44] LABS: INR 0.94 (0.82-1.09)
--- NOTE | 2018-09-25 15:18 | ED ---
Progress - Progress Note Progress Note: PTT specimen was outside of stability window. Dr Mathews ordered as part of panel for autoimmune work up. Patient should follow up with primary DAVID to get the PTT or return to [facility] to have the PTT done. Course/Dx - Diagnoses Provider Diagnoses: Back pain, Fatigue Discharge - Sign-Out/Discharge Documenting (check all that apply): Patient Departure All imaging exams completed and their final reports reviewed: Yes - Discharge Plan Condition: Good Disposition: HOME Forms: *Work Release Referrals: Clarissa Trujillo NP [Primary Care Provider] - Additional Instructions: We will contact you if your lab work is abnormal Continue ibuprofen as needed for pain as directed If symptoms persist or worsen, recommend follow up with your PCP or go to the ER /Urgent care - Billing Disposition and Condition Condition: GOOD Disposition: Home
--- NOTE | 2018-09-27 12:13 | UC ---
- Progress Note Progress Note: urine cx final no growth to date. RN to call pt re prior resulted lab results (previous progress note reviewed). Also Alk phosphatase noted to be elevated (prior result), this will be conveyed to pt as well. Course/Dx - Diagnoses Provider Diagnoses: Back pain, Fatigue Discharge - Sign-Out/Discharge Documenting (check all that apply): Post-Discharge Follow Up All imaging exams completed and their final reports reviewed: Yes - Discharge Plan Condition: Good Disposition: HOME Forms: *Work Release Referrals: Clarissa Trujillo NP [Primary Care Provider] - Additional Instructions: We will contact you if your lab work is abnormal Continue ibuprofen as needed for pain as directed If symptoms persist or worsen, recommend follow up with your PCP or go to the ER /Urgent care - Billing Disposition and Condition Condition: GOOD Disposition: Home
== END 2018-09-25 10:15 | disposition home or self-care (01) ==
LOC: UCCORT 08:06
DX: M54.5 Low back pain (principal); R53.83 Other fatigue; R10.9 Unspecified abdominal pain; E03.9 Hypothyroidism, unspecified; K75.4 Autoimmune hepatitis; F41.9 Anxiety disorder, unspecified; F32.9 Major depressive disorder, single episode, unspecified; Z88.8 Allergy status to other drugs, medicaments and biological substances; Z91.048 Other nonmedicinal substance allergy status
CPT/HCPCS: 36415; 76856; 80053; 81003; 84702; 85025; 85610; 87086; 99212; G0463

== ENCOUNTER 2018-11-18 11:37 | Emergency (ER) | payer OTHER ==
[2018-11-18 12:09] VITALS: BP 144/66
--- NOTE | 2018-11-18 12:22 | UC ---
Skin Complaint HPI - HPI Summary HPI Summary: Pt presents with c/o of possible infection at new piercing site, right nostril. Pt recently had right nostril pierced 3 weeks ago and states that "it instantly became infected". Pt has been cleaning piercing site three times daily and applying sea salt "stuff" to site nightly. She also says occasionally , has purulent discharge from site. Pt also has concern for "strange gurgling sound from throat" that happens just before she falls asleep each night for the "past few" nights. Pt denies URI symptoms, SOB or wheezing, or difficulty breathing. - History of Current Complaint Time Seen by Provider: 11/18/18 12:06 Stated Complaint: NASAL SKIN SORE THROAT EYE Hx Obtained From: Patient Hx Last Menstrual Period: 11/12/18 ?: No Onset/Duration: Gradual Onset, Lasting Days, Still Present Skin Exposure Onset/Duration: Weeks Ago - 3 Timing: Constant Onset Severity: Mild Current Severity: Mild Pain Intensity: 3 Location: Discrete, Nose - right nostril Character: Redness, Raised, Painful Aggravating Factor(s): Touch Associated Signs & Symptoms: Positive: Drainage, Tenderness Related History: Other: - piercing - Allergy/Home Medications Allergies/Adverse Reactions: Allergies Allergy/AdvReac Type Severity Reaction Status Date / Time Adhesive Tape AdvReac Redness Verified 11/18/18 12:01 metoclopramide [From Reglan] AdvReac shaky, Verified 11/18/18 12:01 nausea, dizzy Home Medications: Home Medications cloNIDine TAB* [Catapres 0.1 MG TAB*] 0.1 mg PO DAILY PRN 11/18/18 [History Confirmed 11/18/18] PMH/Surg Hx/FS Hx/Imm Hx Previously Healthy: Yes - Surgical History Surgical History: Yes Surgery Procedure, Year, and Place: Right Ovarian Cyst, 2013, [place] - Family History Known Family History: Positive: Cardiac Disease - Social History Occupation: Employed Full-time Lives: With Family Alcohol Use: None Substance Use Type: None Smoking Status (MU): Never Smoked Tobacco Have You Smoked in the Last Year: No Review of Systems All Other Systems Reviewed And Are Negative: Yes Constitutional: Positive: Negative Skin: Positive: Other - piercing site in right nostril is mildly erytheamtous, and mild swelling. Eyes: Positive: Negative ENT: Positive: Other - "gurgling at night" Respiratory: Positive: Negative Cardiovascular: Positive: Negative Gastrointestinal: Positive: Negative Genitourinary: Positive: Negative Motor: Positive: Negative Neurovascular: Positive: Negative Musculoskeletal: Positive: Negative Neurological: Positive: Negative Psychological: Positive: Negative Is Patient Immunocompromised?: No Physical Exam Triage Information Reviewed: Yes Appearance: Well-Appearing Vital Signs: Initial Vital Signs Temp 97.8 F 11/18/18 12:03 Pulse 82 11/18/18 12:03 Resp 16 11/18/18 12:03 BP 144/66 11/18/18 12:03 Pulse Ox 100 11/18/18 12:03 Vital Signs Reviewed: Yes Eye Exam: Normal ENT: Positive: Other - right nostril pierced, with mild erythema and swelling at site. Dental Exam: Normal Neck exam: Normal Respiratory Exam: Normal Cardiovascular Exam: Normal Musculoskeletal Exam: Normal Neurological Exam: Normal Psychological Exam: Normal Skin Exam: Other - right nostril pierced, with mild erythema and swelling at site. Course/Dx - Differential Diagnoses - Skin Complaint Differential Diagnoses: Cellulitis, Other - wound infection - Diagnoses Provider Diagnosis: Wound infection, Seasonal allergies Discharge - Sign-Out/Discharge Documenting (check all that apply): Patient Departure All imaging exams completed and their final reports reviewed: No Studies - Discharge Plan Condition: Stable Disposition: HOME Prescriptions: Cephalexin CAP* [Keflex 500 CAP*] 500 mg PO Q12H #20 cap Cetirizine* [ZyrTEC 10 MG TAB*] 10 mg PO DAILY #30 tab Patient Education Materials: Allergies (ED), Acute Wounds (ED) Referrals: Clarissa Trujillo NP [Primary Care Provider] - - Billing Disposition and Condition Condition: STABLE Disposition: Home
== END 2018-11-18 12:36 | disposition home or self-care (01) ==
LOC: UCCORT 11:37
DX: S01.23XA Puncture wound without foreign body of nose, initial encounter (principal); L08.9 Local infection of the skin and subcutaneous tissue, unspecified; W26.9XXA Contact with unspecified sharp object(s), initial encounter; Y93.89 Activity, other specified; Y92.9 Unspecified place or not applicable; J30.2 Other seasonal allergic rhinitis
CPT/HCPCS: 99212; G0463

== ENCOUNTER 2019-02-05 18:14 | Emergency (ER) | payer OTHER ==
[2019-02-05 18:29] VITALS: BP 128/76
[2019-02-05] MEDS ORDERED: Ibuprofen ADULT LIQ* 600 MG/30 ML UDC PO ONE (18:45)
--- NOTE | 2019-02-05 18:46 | UC ---
UC General HPI - HPI Summary HPI Summary: pt is c/o having a headache, dizziness and some nausea today. the headache is not abrupt or worst. the dizziness occurs with turn of head or change in position. pt is not lightheaded. no hx injury or fever. - History of Current Complaint Chief Complaint: Fabián Stated Complaint: NAUSEA,DIAZ,DIZZY Time Seen by Provider: 02/05/19 18:34 Hx Obtained From: Patient Hx Last Menstrual Period: current Pain Intensity: 4 - Allergy/Home Medications Allergies/Adverse Reactions: Allergies Allergy/AdvReac Type Severity Reaction Status Date / Time Adhesive Tape AdvReac Redness Verified 02/05/19 18:30 metoclopramide [From Reglan] AdvReac shaky, Verified 02/05/19 18:30 nausea, dizzy PMH/Surg Hx/FS Hx/Imm Hx - Additional Past Medical History Additional PMH: PCOS, autoimmune hepatitis, graves disease. Psychological History: Anxiety, Depression - Surgical History Surgical History: Yes Surgery Procedure, Year, and Place: Right Ovarian Cyst, 2013, [place] - Family History Known Family History: Positive: Cardiac Disease - Social History Occupation: Employed Full-time Alcohol Use: None Substance Use Type: None Smoking Status (MU): Never Smoked Tobacco Have You Smoked in the Last Year: No Review of Systems All Other Systems Reviewed And Are Negative: Yes Constitutional: Negative: Fever, Chills Eyes: Negative: Blurred Vision, Diplopia ENT: Negative: Sore Throat, Ear Ache, Sinus Congestion Respiratory: Negative: Shortness Of Breath, Cough Gastrointestinal: Positive: Nausea. Negative: Vomiting, Diarrhea Musculoskeletal: Positive: Decreased ROM Neurological: Positive: Headache. Negative: Weakness, Paresthesia, Numbness Physical Exam Triage Information Reviewed: Yes Appearance: Well-Appearing Vital Signs: Initial Vital Signs Temp 97.4 F 02/05/19 18:24 Pulse 90 02/05/19 18:24 Resp 18 02/05/19 18:24 BP 128/76 02/05/19 18:24 Pulse Ox 99 02/05/19 18:24 Vital Signs Reviewed: Yes Eyes: Positive: Conjunctiva Clear, Other: - PERRL, EOMI ENT: Positive: Pharynx normal, TMs normal. Negative: Nasal congestion, Nasal drainage Neck: Positive: Supple, Nontender, No Lymphadenopathy Respiratory: Positive: Lungs clear, Normal breath sounds, No respiratory distress Cardiovascular: Positive: RRR, No Murmur Abdomen Description: Positive: Nontender Neurological: Positive: Other: - A&Ox3. CN 2-12 intact. steady gait. 5/5 strength, 2+ reflexes and sensation intactx4. Turn of head reproduces the dizziness that resolves with being still. Psychological: Positive: Age Appropriate Behavior Skin Exam: Normal Course/Dx - Differential Dx - Multi-Symptom Differential Diagnoses: Other - no concern for intracranial bleed. neuro exam is reassuring. dizzines with movemnt that resolves with rest. no concern that vertigo is central. - Diagnoses Provider Diagnosis: Dizziness, Headache, Nausea Discharge ED - Sign-Out/Discharge Documenting (check all that apply): Patient Departure All imaging exams completed and their final reports reviewed: No Studies - Discharge Plan Condition: Stable Disposition: HOME Prescriptions: Meclizine TAB* [Antivert 12.5 TAB*] 12.5 mg PO TID PRN #6 tab PRN Reason: Dizziness Patient Education Materials: Acute Headache (ED), Dizziness (ED) Forms: *Work Release Referrals: Clarissa Trujillo NP [Primary Care Provider] - 5 Days - Billing Disposition and Condition Condition: STABLE Disposition: Home
== END 2019-02-05 18:59 | disposition home or self-care (01) ==
LOC: UCCORT 18:14
DX: R42 Dizziness and giddiness (principal); R51 Headache; R11.0 Nausea; Z88.8 Allergy status to other drugs, medicaments and biological substances; Z91.048 Other nonmedicinal substance allergy status
CPT/HCPCS: 99212; A9270-GY; G0463

== ENCOUNTER 2019-04-10 07:42 | Emergency (ER) | payer OTHER ==
--- OUTSIDE RECORDS SUMMARY | 2019-04-10 07:52 | XMS REPORT | Continuity of Care Document ---
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 Care Team Information Environmental Director [phone] Practitioner Problems Active Problems Provider Date Autoimmune hepatitis Maggy Trujillo FNP Onset: 03/29/2017 Note: Document: 03/05/17 - Consult Surgery-Transplant Graves' disease Maggy Trujillo FNP Onset: 03/29/2017 Palpitations Maggy Trujillo LAWN SERVICE MANAGER Onset: 02/06/2017 Depressive disorder Maggy Trujillo [employer]WN SERVICE MANAGER Onset: 02/06/2017 Abnormal liver function Maggy Trujillo [employer]WN SERVICE MANAGER Onset: 02/06/2017 Drug-induced obesity Maggy Trujillo LAWN SERVICE MANAGER Onset: 11/07/2017 Hypothyroidism caused by drug Maggy Trujillo LAWN SERVICE MANAGER Onset: 11/07/2017 Polycystic ovaries Maggy Trujillo, LAWN SERVICE MANAGER Onset: 04/10/2018 Hypothyroidism Maggy Trujillo, LAWN SERVICE MANAGER Onset: 01/20/2019 Obesity Maggy Trujillo, LAWN SERVICE MANAGER Onset: 01/20/2019 Body mass index 30+ - obesity Maggy Trujillo, LAWN SERVICE MANAGER Onset: 01/20/2019 Social History Type Date Description Comments Sex Unknown Tobacco Use Start: Unknown Never Smoked Cigarettes ETOH Use Rarely consumes alcohol Recreational Drug Use Denies Drug Use Tobacco Use Start: Unknown Patient denies history of Never smoked smoking Smoking Status Reviewed: 04/07/19 Patient denies history of Never smoked smoking Allergies, Adverse Reactions, Alerts Active Allergies Reaction Severity Comments Date Reglan 12/05/2016 Adhesives 12/05/2016 Inactive Allergies NKDA 03/09/2009 Medications Active Medications SIG Qnty Indications Ordering Provider Date Sprintec 28 Take 1 Tablet By 28tabs Z30.09 [place], 03/31/2019 Mouth Every Day Maggy 0.25-35mg-mcg Tablets LAWN SERVICE MANAGER Tirosint one PO qd in 30caps E03.9 [place], 03/03/[address] of 137 mcg Mariannferleimago, Capsules LAWN SERVICE MANAGER Splint Wrist use on rt wrist 1units G56.01 [place], 01/09/2018 Brace/Left-Right/Reve as needed for grant Winter computer work LAWN SERVICE MANAGER Misc Naproxen take one tablet 60tabs M72.2 [place], 12/19/2017 500mg Tablets by mouth twice a jeanne Winter LAWN SERVICE MANAGER S86.892A M46.1 Ibuprofen take one tablet 90tabs E28.2 Maggy Trujillo, 12/05/2016 800mg Tablets by mouth every 6 LAWN SERVICE MANAGER hours as needed Azathioprine 3 tabs po Unknown 50mg Tablets Calcium Unknown Carbonate-Vitamin D [id number] Tablets Vitamin D 1 by mouth every Unknown 1000Unit day Tablets Paroxetine HCL Unknown 20mg Tablets Clonidine HCL Unknown 0.1mg Tablets Folic Acid Take 1 Tablet By Unknown 1mg Tablets Mouth Every Day History Medications Tirosint one PO qd *in 30caps E03.9 Maggy Trujillo, 01/21/2019 - 150mcg place of 137 LAWN SERVICE MANAGER 03/03/2019 Capsules mcg Tirosint one PO qd in 30caps E03.9 Maggy Trujillo, 12/02/2018 - 137mcg place of 125 LAWN SERVICE MANAGER 01/21/2019 Capsules mcg Immunizations CPT Code Status Date Vaccine Lot # [id number] Given 03/03/2019 Influenza Virus Vaccine, Quadrivalent, 36 Mos+, [id number] Given 12/02/2018 Tdap injection [id number] Given 12/02/2018 [place] Mningococcal Recombinant Lipoprotein [id number] Vaccine Serogroup B 61025 Given 03/15/2018 Influenza Virus Vaccine, Quadrivalent, 36 Mos+, [id number] .[id number] Vital Signs Date Vital Result Comment 04/07/2019 3:11pm Body Temperature 98.7 F Heart Rate 88 /min Respiratory Rate 18 /min Height 62 inches 5'2" Weight 211.12 lb BMI (Body Mass Index) 38.6 kg/m2 BSA (Body Surface Area) 1.96 m2 [place] body weight in kilograms 50 kg Last Menstrual Period [id number] O2 % BldC Oximetry 97 % Ra 03/03/2019 9:31am BP Systolic 122 mmHg BP Diastolic 80 mmHg Body Temperature 98.6 F Heart Rate 101 /min Respiratory Rate 18 /min Height 62 inches 5'2" Weight 204.25 lb BMI (Body Mass Index) 37.4 kg/m2 BSA (Body Surface Area) 1.93 m2 [place] body weight in kilograms 50 kg O2 % BldC Oximetry 94 % Results Test Acquired Date Facility Test Result H/L Range Note Laboratory test 04/07/2019 [facility] Urine Negative finding Test Urine Dipstick 04/07/2019 [facility] Ua Color yellow Yellow Ua Clarity clear Clear Ua Leuko negative Negative Ua Nitrite negative Negative Ua Urobilinogen 0.2 0.2 - 1.0 E.U./dL Ua Protein negative Negative Ua PH 6.0 Low 6.5-7.5 Ua Blood negative Negative Ua Specific [place] 1.010 1.010-1.030 Ua Ketones negative Negative Ua Bilirubin negative Negative Ua Glucose negative Negative Laboratory test 04/07/2019 [facility] Inhouse Urine negative Negative finding Test QL Laboratory test 03/03/[address] [facility] [address] Thyroid Stim 8.15 uIU/mL High 0.30-4.20 1 finding [address] [place] [address] [phone] Laboratory test 01/20/[address] [facility] [address] Thyroid Stim 6.02 uIU/mL High 0.30-4.20 2 finding [address] [place] [address] [phone] HPV High Risk - 12/02/2018 [facility] HPV High Risk Results on 3, 4 Alt Ref Lab [address] [place] [address] [phone] CBC W/Automated 12/02/[address] [facility] [address] White Blood 8.7 K/uL Normal 3.1-10.[address] [place] [address] [phone] Red Blood Count 4.58 M/uL Normal 3.90-5.40 Hemoglobin 14.0 gm/dL Normal 11.6-15.8 Hematocrit 40.6 % Normal 36.0-46.1 Mean Cell Volume 88.6 fl Normal 80.9-99.0 Mean Corpuscular HGB 30.6 pg Normal 25.9-32.7 Mean Corpuscular HGB Conc 34.5 g/dL High 30.8-34.3 Platelet Count 263 K/uL Normal 155-360 Red Cell Distri Width SD 41.7 fl Normal 36-47 Red Cell Distri Width %CV 12.9 % Normal 11.7-14.4 Mean Platelet Volume 9.8 fl Normal 8.9-12.4 Neut% 67.5 % Normal 40.4-72.8 Lymph % 17.1 % Low 20.0-42.0 [place] % 7.4 % Normal 4.3-13.2 Eo% 6.8 % High 0.0-6.6 Bas% 0.6 % Normal 0.0-1.1 Immature Grans 0.6 % Normal 0.0-5.0 NRBC % 0.0 /100WBC < 10/ 100 WBC Neut# 5.84 K/uL Normal 1.8-7.0 Lymph # 1.48 K/uL Normal 1.0-4.0 [place] # 0.64 K/uL Normal 0.3-0.9 Eos # 0.59 K/uL High 0.0-0.5 Baso # 0.05 K/uL Normal 0.0-0.1 Immature Grans Absolute 0.05 K/uL NRBC # 0.00 K/uL Laboratory test 12/02/[address] [facility] [address] Thyroid 29.40 High 0.30-4.[address] Stim uIU/[place] [address] Hormone [phone] Inr/Protime 11/08/2018 [facility] Laboratory Inr 0.97 Normal 0.82-1.09 5 [phone] Comp Metabolic 11/08/2018 [facility] Laboratory Sodium 139 mmol/ L Normal 135-145 Panel [phone] Potassium 3.7 mmol/L Normal 3.5-5.0 Chloride 108 mmol/L Normal 101-111 Co2 Carbon Dioxide 23 mmol/L Normal 22-32 Anion Gap 8 mmol/L Normal 2-11 Glucose 100 mg/dL Normal 70-100 Blood Urea Nitrogen 6 mg/dL Normal 6-24 Creatinine 0.69 mg/dL Normal 0.51-0.95 BUN/Creatinine Ratio 8.7 Normal 8-20 Calcium 9.1 mg/dL Normal 8.6-10.3 Total Protein 7.4 g/dL Normal 6.4-8.9 Albumin 4.0 g/dL Normal 3.2-5.2 Globulin 3.4 g/dL Normal 2-4 Albumin/Globulin Ratio 1.2 Normal 1-3 Total Bilirubin 0.70 mg/dL Normal 0.2-1.0 Alkaline Phosphatase 101 U/L Normal 34-104 Alt 10 U/L Normal 7-52 Ast 17 U/L Normal 13-39 Egfr Non- 107.4 >60 Egfr 130.0 >60 6 CBC Auto 11/08/2018 [facility] Laboratory White Blood 7.5 10^3/ uL Normal 3.5-10.8 Diff [phone] Count Red Blood Count 4.58 10^6/uL Normal 3.70-4.87 Hemoglobin 13.7 g/dL Normal 12.0-16.0 Hematocrit 40 % Normal 35-47 Mean Corpuscular Volume 87 fL Normal 80-97 Mean Corpuscular Hemoglobin 30 pg Normal 27-31 Mean Corpuscular HGB Conc 34 g/dL Normal 31-36 Red Cell Distribution Width 14 % Normal 10-15 Platelet Count 202 10^3/uL Normal 150-450 Mean Platelet Volume 8.6 fL Normal 7.4-10.4 Abs Neutrophils 5.3 10^3/uL Normal 1.5-7.7 Abs Lymphocytes 1.3 10^3/uL Normal 1.0-4.8 Abs Monocytes 0.4 10^3/uL Normal 0-0.8 Abs Eosinophils 0.4 10^3/uL Normal 0-0.6 Abs Basophils 0.1 10^3/uL Normal 0-0.2 Abs Nucleated RBC 0.0 10^3/uL Granulocyte % 71.0 % Lymphocyte % 18.0 % Monocyte % 5.1 % Eosinophil % 5.2 % Basophil % 0.7 % Nucleated Red Blood Cells % 0.1 1 R53.83 2 E03.9 3 R53.83 4 Hard copy of report to be sent by mail Report may be viewed in Clinical Review, or in PCI under Medical Record Forms 5 Standard intensity warfarin therapeutic range: 2.0-3.0 High intensity warfarin therapeutic range: 2.5-3.5 6 Because ethnic data is not always readily available, this report includes an eGFR for both -Americans and non- Americans. The National Kidney Disease Education Program (NKDEP) does not endorse the use of the MDRD equation for patients that are not between the ages of 18 and 70, are , have extremes of body size, muscle mass, or nutritional status, or are non- or non-. According to the National Kidney Foundation, irrespective of diagnosis, the stage of the disease is based on the level of kidney function: Stage Description GFR(mL/min/1.73 m(2)) 1 Kidney damage with normal or decreased GFR 90 2 Kidney damage with mild decrease in GFR 60-89 3 Moderate decrease in GFR 30-59 4 Severe decrease in GFR 15-29 5 Kidney failure <15 (or dialysis) Procedures Description No Information Available Medical Devices Description No Information Available Encounters Type Date Location Provider Dx Diagnosis Office Visit 04/07/2019 Family Kacie Trujillo, N92.6 Irregular 2:30p [place] MARY Winter, menstruation, LAWN SERVICE MANAGER unspecified E03.9 Hypothyroidism, unspecified E66.9 Obesity, unspecified Office Visit 01/20/2019 Family Trujillo, E03.9 Hypothyroidism, 10:30a KIRA Palacios unspecified RD R53.83 Other fatigue E66.9 Obesity, unspecified Z71.3 Dietary counseling and surveillance Z68.36 Body mass index (BMI) 36.0-36.9, adult Office Visit 12/30/2018 Family Trujillo L91.0 Hypertrophic scar 3:15p KIRA Palacios RD Office Visit 12/02/2018 Family Trujillo, Z00.01 Encounter for 9:30a [place] Maggy, LAWN SERVICE MANAGER general adult RD medical exam w abnormal findings R53.83 Other fatigue E03.9 Hypothyroidism, unspecified Z23 Encounter for immunization Z12.4 Encounter for screening for malignant neoplasm of cervix Assessments Date Code Description Provider 04/07/2019 N92.6 Irregular menstruation, unspecified Clune, Maggy, LAWN SERVICE MANAGER 04/07/2019 E03.9 Hypothyroidism, unspecified Clune, Jenbrucefergeorgianagh, LAWN SERVICE MANAGER 04/07/2019 E66.9 Obesity, unspecified Clune, Jennifergeorgianagh, LAWN SERVICE MANAGER 03/03/2019 E66.9 Obesity, unspecified Clune, Jennifergeorgianagh, LAWN SERVICE MANAGER 03/03/2019 E03.9 Hypothyroidism, unspecified Clune, Jenniferleigh, LAWN SERVICE MANAGER 03/03/2019 R53.83 Other fatigue Cassandra, Maggy, LAWN SERVICE MANAGER 03/03/2019 Z23 Encounter for immunization Clune, Maggy, LAWN SERVICE MANAGER 01/20/2019 E03.9 Hypothyroidism, unspecified Clune, Jenniferleigh, LAWN SERVICE MANAGER 01/20/2019 R53.83 Other fatigue Clune, Mariannfergeorgianagh, LAWN SERVICE MANAGER 01/20/2019 E66.9 Obesity, unspecified Clune, Jenniferleigh, LAWN SERVICE MANAGER 01/20/2019 Z71.3 Dietary counseling and surveillance Maggy Trujillo, LAWN SERVICE MANAGER 01/20/2019 Z68.36 Body mass index (BMI) 36.0-36.9, adult ClMaggy moore, LAWN SERVICE MANAGER 12/30/2018 L91.0 Hypertrophic scar Closcar, Maggy, LAWN SERVICE MANAGER 12/02/2018 Z00.01 Encounter for general adult medical ClMaggy moore, LAWN SERVICE MANAGER examination with abnormal findings 12/02/2018 R53.83 Other fatigue Closcar, Maggy, LAWN SERVICE MANAGER 12/02/2018 E03.9 Hypothyroidism, unspecified Clune, Nohemynifergeorgianagh, LAWN SERVICE MANAGER 12/02/2018 Z23 Encounter for immunization Clune, Mariannferlorna, LAWN SERVICE MANAGER 12/02/2018 Z12.4 Encounter for screening for malignant Clune, Maggy , LAWN SERVICE MANAGER neoplasm of cervix Plan of Treatment 04/07/2019 - ChadMaggy moore, DARBYPN92.6 Irregular menstruation, unspecifiedComments:Discussed many possible cuases of period irregularities including stress, thyroid infection (vaginalor urinary) as well as PCOS. Will get labs for further [id number] Hypothyroidism, unspecifiedNew Labs: Thyroid Stim Hormone, Ordered: 04/07/19Comments:due for repeat labs - ordered [id number] Obesity, unspecifiedNew Labs:Glycohemoglobin A1c, Ordered: Comments:Continue to work on healthy habits, including eating smaller portions , trying to get more proteins, and fewer carbohydrates in your diet, continue drinking water and working to get more activity/exercise in your day Functional Status Functional Condition Comment Date Status Glasses Active Mental Status Description No Information Available Referrals Refer to Reason for Referral Status Appt Date Sayda Alexander 23 YOF with PMHx of autoimmune Received Complete 00/00/ 0000 M.D. hepatitis, hypothyroidism had nasal piercing x 1 month with development of hypertrophic scarring - would like treatment. Thank you. [facility] [place], [place] [phone]
--- OUTSIDE RECORDS SUMMARY | 2019-04-10 07:53 | XMS REPORT | Continuity of Care Document ---
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 DRIER OPERATOR - Nurse Care Team Information Instructor Physical Education Practitioner Problems Active Problems Provider Date Autoimmune hepatitis Maggy Trujillo FNP Onset: 03/29/2017 Note: Document: 03/05/17 - Consult Surgery-Transplant Graves' disease Maggy Trujillo BURNISHER Onset: 03/29/2017 Palpitations Maggy Trujillo BURNISHER Onset: 02/06/2017 Depressive disorder Maggy Trujillo BURNISHER Onset: 02/06/2017 Abnormal liver function Maggy Trujillo BURNISHER Onset: 02/06/2017 Drug-induced obesity Maggy Trujillo, BURNISHER Onset: 11/07/2017 Hypothyroidism caused by drug Maggy Trujillo BURNISHER Onset: 11/07/2017 Polycystic ovaries Maggy Trujillo, BURNISHER Onset: 04/10/2018 Hypothyroidism Maggy Trujillo, BURNISHER Onset: 01/20/2019 Obesity Maggy Trujillo, BURNISHER Onset: 01/20/2019 Body mass index 30+ - obesity Maggy Trujillo, BURNISHER Onset: 01/20/2019 Social History Type Date Description Comments Sex Unknown Tobacco Use Start: Unknown Never Smoked Cigarettes ETOH Use Rarely consumes alcohol Recreational Drug Use Denies Drug Use Tobacco Use Start: Unknown Patient denies history of Never smoked smoking Smoking Status Reviewed: 03/03/19 Patient denies history of Never smoked smoking Allergies, Adverse Reactions, Alerts Active Allergies Reaction Severity Comments Date Reglan 12/05/2016 Adhesives 12/05/2016 Inactive Allergies NKDA 03/09/2009 Medications Active Medications SIG Qnty Indications Ordering Provider Date Tirosint one PO qd *in 30caps E03.9 [place], 01/21/[address] of 137 mcg Maggy Capsules BURNISHER Splint Wrist use on rt wrist 1units G56.01 [place], 01/09/2018 Brace/Left-Right/Reve as needed for grant Winter computer 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 BURNISHER Misc Naproxen take one tablet 60tabs M72.2 [place], 12/19/2017 500mg Tablets by mouth twice a jeanne Winter BURNISHER S86.892A M46.1 Ibuprofen take one tablet 90tabs E28.2 Maggy Trujillo, 12/05/2016 800mg Tablets by mouth every BURNISHER 6 hours as needed Norgestimate-Eth one by mouth 28tabs Z30.09 Maggy Trujillo, 2016 Estradiol every day BURNISHER 0.25-35mg-mcg Tablets Azathioprine 3 tabs po Unknown 50mg Tablets Calcium Unknown Carbonate-Vitamin D [id number] Tablets Vitamin D 1 by mouth Unknown 1000Unit every day Tablets Paroxetine HCL Unknown 20mg Tablets Clonidine HCL Unknown 0.1mg Tablets Folic Acid Take 1 Tablet Unknown 1mg Tablets By Mouth Every Day History Medications Tirosint one PO qd in 30caps E03.9 Maggy Trujillo, 12/02/2018 - 137mcg place of 125 BURNISHER 01/21/2019 Capsules mcg Immunizations CPT Code Status Date Vaccine Lot # [id number] Given 03/03/2019 Influenza Virus Vaccine, Quadrivalent, 36 Mos+, [id number] .[id number] Given 12/02/2018 Tdap injection [id number] Given 12/02/2018 [place] Mningococcal Recombinant Lipoprotein [id number] Vaccine Serogroup B [id number] Given 03/15/2018 Influenza Virus Vaccine, Quadrivalent, 36 Mos+, [id number] .[id number] Vital Signs Date Vital Result Comment 03/03/2019 9:31am BP Systolic 122 mmHg BP Diastolic 80 mmHg Body Temperature 98.6 F Heart Rate 101 /min Respiratory Rate 18 /min Height 62 inches 5'2" Weight 204.25 lb BMI (Body Mass Index) 37.4 kg/m2 BSA (Body Surface Area) 1.93 m2 [place] body weight in kilograms 50 kg O2 % BldC Oximetry 94 % 01/20/2019 10:29am BP Systolic Sitting Right Arm 113 mmHg BP Diastolic Sitting Right Arm 72 mmHg Heart Rate 97 /min Respiratory Rate 17 /min Height 62 inches 5'2" Weight 200.00 lb BMI (Body Mass Index) 36.6 kg/m2 BSA (Body Surface Area) 1.91 m2 [place] body weight in kilograms 50 kg Results Test Date Facility Test Result H/L Range Note Laboratory test 01/20/[address] [facility] [address] Thyroid Stim 6.02 uIU/mL High 0.30-4.[address] Hormone [place], [place] [address] [phone] HPV High Risk - 12/02/2018 [facility] HPV High Results on 2, 3 Alt Ref Lab [address] [place] [address] [phone] CBC W/Automated 12/02/2018 [facility] White Blood 8.7 K/uL Normal 3.1-10.[address] [place] [address] [phone] Red Blood Count 4.58 M/uL Normal 3.90-5.40 [...] 40.4-72.8 Lymph % 17.1 % Low 20.0-42.0 [place] % 7.4 % Normal 4.3-13.2 Eo% 6.8 % High 0.0-6.6 Bas% 0.6 % Normal 0.0-1.1 Immature Grans 0.6 % Normal 0.0-5.0 NRBC % 0.0 /100WBC < 10/ 100 WBC Neut# 5.84 K/uL Normal 1.8-7.0 Lymph # 1.48 K/uL Normal 1.0-4.0 [place] # 0.64 K/uL Normal 0.3-0.9 Eos # 0.59 K/uL High 0.0-0.5 Baso # 0.05 K/uL Normal 0.0-0.1 Immature Grans Absolute 0.05 K/uL NRBC # 0.00 K/uL Laboratory test 12/02/[address] [facility] [address] Thyroid 29.40 High 0.30-4.[address] Stim uIU/[place] [address] Hormone [phone] Inr/Protime 11/08/2018 [facility] Inr 0.97 Normal 0.82-1.09 4 [phone] Comp Metabolic 11/08/2018 [facility] Sodium 139 mmol/ L Normal 135-145 Panel [phone] Potassium 3.7 mmol/L Normal 3.5-5.0 Chloride 108 [...] Egfr Non- 107.4 >60 Egfr 130.0 >60 5 CBC Auto 11/08/2018 [facility] White Blood 7.5 10^3/ uL Normal 3.5-10.8 Diff [phone] Count Red Blood Count 4.58 10^6/uL Normal [...] % Nucleated Red Blood Cells % 0.1 Urine Culture And 09/25/2018 [facility] Urine SEE RESULT 6, 7 Sensitivities [phone] Culture BELOW Poc Urinalysis 09/25/2018 [facility] Poc Negative Negative [phone] Glucose, Urine Poc Bilirubin, Urine 1+ Abnormal Negative Poc Ketone, Urine Negative Negative Poc Specific [place], Urine 1.025 Normal 1.010-1.030 Poc Blood, Urine Negative Negative Poc pH, Urine 6.5 Normal 5-9 Poc Protein, Urine 1+ Abnormal Negative Poc Urobilinogen, Urine 1.0 Negative Poc Nitrite, Urine Negative Negative Poc Leukocytes, Urine Trace Abnormal Negative Poc Color, Urine Yellow Poc Clarity, Urine Slightly Cloudy 8 Laboratory 09/25/2018 [facility] Poc Negative Negative 9 test finding [phone] , Urine Inr/Protime 09/25/2018 [facility] Inr 0.94 Normal 0.82-1.09 10 [phone] CBC Auto Diff 09/25/2018 [facility] White Blood 6.8 10^3/uL Normal 3.5-10.8 [phone] Count Red Blood Count 4.85 10^6/uL Normal 3.70-4.87 Hemoglobin 14.3 g/dL Normal 12.0-16.0 Hematocrit 42 % Normal 35-47 Mean Corpuscular Volume 86 fL Normal 80-97 Mean Corpuscular Hemoglobin 30 pg Normal 27-31 Mean Corpuscular HGB Conc 34 g/dL Normal 31-36 Red Cell Distribution Width 13 % Normal 10.5-15 Platelet Count 257 10^3/uL Normal 150-450 Mean Platelet Volume 7.7 fL Normal 7.4-10.4 Abs Neutrophils 4.4 10^3/uL Normal 1.5-7.7 Abs Lymphocytes 1.6 10^3/uL Normal 1.0-4.8 Abs Monocytes 0.4 10^3/uL Normal 0-0.8 Abs Eosinophils 0.3 10^3/uL Normal 0-0.6 Abs Basophils 0 10^3/uL Normal 0-0.2 Abs Nucleated RBC 0 10^3/uL Granulocyte % 65.1 % Lymphocyte % 23.3 % Monocyte % 6.0 % Eosinophil % 5.1 % Basophil % 0.5 % Nucleated Red Blood Cells % 0.2 Comp Metabolic 09/25/2018 [facility] Sodium 138 mmol/ L Normal 135-145 Panel [phone] Potassium 3.9 mmol/L Normal 3.5-5.0 Chloride 107 mmol/L Normal 101-111 Co2 Carbon Dioxide 23 mmol/L Normal 22-32 Anion Gap 8 mmol/L Normal 2-11 Calcium 9.1 mg/dL Normal 8.6-10.3 Albumin 4.2 g/dL Normal 3.2-5.2 Total Bilirubin 0.70 mg/dL Normal 0.2-1.0 Glucose 81 mg/dL Normal 70-100 Blood Urea Nitrogen 6 mg/dL Normal 6-24 Creatinine 0.65 mg/dL Normal 0.51-0.95 BUN/Creatinine Ratio 9.2 Normal 8-20 Total Protein 7.2 g/dL Normal 6.4-8.9 Globulin 3.0 g/dL Normal 2-4 Albumin/Globulin Ratio 1.4 Normal 1-3 Alkaline Phosphatase 117 U/L High 34-104 Alt 9 U/L Normal 7-52 Ast 15 U/L Normal 13-39 Egfr Non- 115.1 >60 Egfr 139.2 >60 11 Laboratory test 09/05/2018 [facility] Poc , Negative Negative 12 finding [phone] Urine Poc Urinalysis 09/05/2018 [facility] Poc Glucose, Negative Negative [phone] Urine Poc Bilirubin, Urine Negative Negative Poc Ketone, Urine Negative Negative Poc Specific [place], Urine 1.015 Normal 1.010-1.030 Poc Blood, Urine Negative Negative Poc pH, Urine 8.5 Normal 5-9 Poc Protein, Urine Negative Negative Poc Urobilinogen, Urine 0.2 Negative Poc Nitrite, Urine Negative Negative Poc Leukocytes, Urine 1+ Abnormal Negative Poc Color, Urine Dark yellow Poc Clarity, Urine Slightly Cloudy 13 Urine Culture And 09/05/2018 [facility] Urine Culture SEE RESULT 14, 15 Sensitivities [phone] BELOW 1 E03.9 2 R53.83 3 Hard copy of report to be sent by mail Report may be viewed in Clinical Review, or in PCI under Medical Record Forms 4 Standard intensity warfarin therapeutic range: 2.0-3.0 High intensity warfarin therapeutic range: 2.5-3.5 5 Because ethnic data is not always readily [...] 15-29 5 Kidney failure <15 (or dialysis) 6 [id number] SEE RESULT BELOW Name: DILEEP GAMEZ : [address]: Chiquita Mathews DO Acct: [id number] Unit: [id number] AGE: 23 Location: [facility] Re09/25/18 SEX: F Status: DEP ER SPEC: [id number] KWABENA: 09/25/[address] [facility] [address]: Chiquita Mathews DO REQ: [id number] RECD: 09/25/18 STATUS: EVELIA PUGA DR: Maggy PASTORP _ SOURCE: URINE SPDESC: ORDERED: Urine Culture COMMENTS: [id number] Procedure Result Reported Site Urine Culture Final 09/26/18- 1202 ML No growth of clinically significant organisms * ML - Main Lab . END OF REPORT DEPARTMENT OF PATHOLOGY, [address] [place] [address] George Edwards M.D. Director [facility] # [id number] Guest Room Inspector: [id number] Guest Room Inspector: [id number] Test Disclaimer: Positive bacteria, red blood cells, white blood cells, early , low specific gravity, and other factors may cause false positive or negative results. It is recommended to retest unexpected results within 24 to 72 hours with a serum test when applicable. If is still suspected, please repeat test after 48 to 72 hours. 10 Standard intensity warfarin therapeutic range: 2.0-3.0 High intensity warfarin therapeutic range: 2.5-3.5 11 Because ethnic data is not always readily [...] 15-29 5 Kidney failure <15 (or dialysis) 12 Guest Room Inspector: [id number] Test Disclaimer: Positive bacteria, red blood cells, white blood cells, early , low specific gravity, and other factors may cause false positive or negative results. It is recommended to retest unexpected results within 24 to 72 hours with a serum test when applicable. If is still suspected, please repeat test after 48 to 72 hours. 13 Guest Room Inspector: [id number] 15 SEE RESULT BELOW Name: DILEEP GAMEZ : [address]: Shauna Spencer MD Acct: [id number] Unit: [id number] AGE: 22 Location: [facility] Re09/05/18 SEX: F Status: DEP ER SPEC: [id number] KWABENA: 09/05/[address] [facility] [address]: Martín Snow FIBER DRIER OPERATOR REQ: [id number] RECD: 09/05/18 STATUS: EVELIA PUGA DR: Maggy Trujillo [facility] Shauna Spencer MD _ SOURCE: URINE SPDES: ORDERED: Urine Culture COMMENTS: [id number] Procedure Result Reported Site Urine Culture Final 09/06/18- 1516 ML No growth of clinically significant organisms * ML - Main Lab . END OF REPORT DEPARTMENT OF PATHOLOGY, [address] [place] [address] George Edwards M.D. Director [facility] # [id number] Procedures Description No Information Available Medical Devices Description No Information Available Encounters Type Date Location Provider Dx Diagnosis Office Visit 01/20/2019 [facility] Kacie Trujillo, E03.9 Hypothyroidism, 10:[address] cyndie Winter R53.83 Other fatigue E66.9 Obesity, unspecified Z71.3 Dietary counseling and surveillance Z68.36 Body mass index (BMI) 36.0-36.9, adult Office Visit 12/30/2018 Family Trujillo, L91.0 Hypertrophic scar 3:15p KIRA [address] RD Office Visit 12/02/2018 Family Trujillo Z00.01 Encounter for 9:30a KIRA Palacios general adult RD medical exam w abnormal findings R53.83 Other fatigue E03.9 Hypothyroidism, unspecified Z23 Encounter for immunization Z12.4 Encounter for screening for malignant neoplasm of cervix Assessments Date Code Description Provider 03/03/2019 E66.9 Obesity, unspecified Maggy Trujillo, [facility] 03/03/2019 E03.9 Hypothyroidism, unspecified Cassandra, Maggy, BURNISHER 03/03/2019 R53.83 Other fatigue Maggy Trujillo, [facility] 01/20/2019 E03.9 Hypothyroidism, unspecified Cassandra, Maggy, BURNISHER 01/20/2019 R53.83 Other fatigue Maggy Trujillo, [facility] 01/20/2019 E66.9 Obesity, unspecified Maggy Trujillo, [facility] 01/20/2019 Z71.3 Dietary counseling and surveillance Maggy Trujillo, [facility] 01/20/2019 Z68.36 Body mass index (BMI) 36.0-36.9, adult Maggy Trujillo [facility] 12/30/2018 L91.0 Hypertrophic scar Maggy Trujillo, [facility] 12/02/2018 Z00.01 Encounter for general adult medical ChadClarissa mooregeorgianamago [facility] examination with abnormal findings 12/02/2018 R53.83 Other fatigue Maggy Trujillo, [facility] 12/02/2018 E03.9 Hypothyroidism, unspecified Maggy Trujillo, [facility] 12/02/2018 Z23 Encounter for immunization Maggy Trujillo, [facility] 12/02/2018 Z12.4 Encounter for screening for malignant Clarissa Trujillogeorgianamago [facility] neoplasm of cervix Plan of Treatment 03/03/2019 - Maggy Trujillo, PE66.9 Obesity, unspecifiedComments: continue smaller changes - increased walking. With the [employer] you will be able to download and watch different work out videos - I recommend doing interval trainings such as: sit ups or planks, then treadmill for 5 min and repeat x 3E03.9 Hypothyroidism, unspecifiedComments:will recheck labsR53.83 Other fatigueNew Labs:Thyroid Stim Hormone, Ordered: 03/03/19Comments:slightly improved with increased Tirosint - recheck labs as noted above Functional Status Functional Condition Comment Date Status Glasses Active Mental Status Description No Information Available Referrals Refer to Reason for Referral Status Appt Date Sayda Alexander 23 YOF with PMHx of autoimmune Received Complete / 0000 M.D. hepatitis, hypothyroidism had nasal piercing x 1 month with development of hypertrophic scarring - would like treatment. Thank you. [address] [place] [address] [phone]
[2019-04-10 08:05] VITALS: BP 120/74
--- NOTE | 2019-04-10 08:19 | UC ---
Ear Complaint HPI - HPI Summary HPI Summary: 23 yo female with left ear pain x 3 days no fever/chills mild sore throat nausea diarrhea 2x day for 3 days mild crampy abd pain no UTI symptoms - History of Current Complaint Chief Complaint: UCGeneralIllness Stated Complaint: LEFT EAR PAIN,SHAKY,BODY ACHES,NAUSEA,DIAZ Time Seen by Provider: 04/10/19 08:06 Hx Obtained From: Patient Hx Last Menstrual Period: 04/02/19 Onset/Duration: Gradual Onset, Lasting Days - 3 Severity Initially: Mild Severity Currently: Moderate Pain Intensity: 6 Pain Scale Used: 0-10 Numeric Alleviating Factors: Nothing - Allergies/Home Medications Allergies/Adverse Reactions: Allergies Allergy/AdvReac Type Severity Reaction Status Date / Time Adhesive Tape AdvReac Redness Verified 04/10/19 07:53 metoclopramide [From Reglan] AdvReac shaky, Verified 04/10/19 07:53 nausea, dizzy Home Medications: Home Medications Levothyroxine Sodium [Tirosint] 200 mcg PO 04/10/19 [History] PMH/Surg Hx/FS Hx/Imm Hx Previously Healthy: Yes Endocrine History: Thyroid Disease - Surgical History Surgical History: Yes Surgery Procedure, Year, and Place: Right Ovarian Cyst, 2013, [place] - Family History Known Family History: Positive: Cardiac Disease - Social History Alcohol Use: None Substance Use Type: None Smoking Status (MU): Never Smoked Tobacco Have You Smoked in the Last Year: No Review of Systems All Other Systems Reviewed And Are Negative: Yes Constitutional: Positive: Negative Skin: Positive: Negative Eyes: Positive: Negative ENT: Positive: Ear Ache Respiratory: Positive: Negative Cardiovascular: Positive: Negative Gastrointestinal: Positive: Diarrhea, Nausea Genitourinary: Positive: Negative Motor: Positive: Negative Neurovascular: Positive: Negative Musculoskeletal: Positive: Negative Neurological: Positive: Negative Psychological: Positive: Negative Physical Exam Triage Information Reviewed: Yes Appearance: Well-Appearing, No Pain Distress, Well-Nourished Vital Signs: Initial Vital Signs Temp 97.8 F 04/10/19 07:57 Pulse 91 04/10/19 07:57 Resp 20 04/10/19 07:57 BP 120/74 04/10/19 07:57 Pulse Ox 99 04/10/19 07:57 Vital Signs Reviewed: Yes Eyes: Positive: Conjunctiva Clear ENT: Positive: Uvula midline. Negative: Hearing grossly normal, TMs normal - left retraced, Tonsillar swelling, Tonsillar exudate, Trismus, Muffled voice, Hoarse voice, Sinus tenderness Dental Exam: Normal Neck: Positive: Supple, Nontender, No Lymphadenopathy Respiratory: Positive: Lungs clear, Normal breath sounds, No respiratory distress, No accessory muscle use Cardiovascular: Positive: RRR, No Murmur Abdomen Description: Positive: Nontender, No Organomegaly, Soft. Negative: CVA Tenderness (R), CVA Tenderness (L) Bowel Sounds: Positive: Present Musculoskeletal: Positive: ROM Intact, No Edema Neurological: Positive: Alert Psychological Exam: Normal Skin Exam: Normal Ear Complaint Course/Dx - Differential Dx/Diagnosis Provider Diagnosis: Left serous otitis media, Viral syndrome Discharge ED - Sign-Out/Discharge Documenting (check all that apply): Patient Departure All imaging exams completed and their final reports reviewed: No Studies - Discharge Plan Condition: Stable Disposition: HOME Prescriptions: Fluticasone NASAL SPRAY 50MCG* [Flonase NASAL SPRAY 50MCG*] 2 spray BOTH NARES BID #1 btl Ondansetron TAB* [Zofran Tab*] 4 mg PO Q6H PRN #10 tab PRN Reason: Nausea Patient Education Materials: Serous Otitis Media (ED), Viral Syndrome (ED) Referrals: Clarissa Trujillo NP [Primary Care Provider] - 5 Days (if not better) - Billing Disposition and Condition Condition: STABLE Disposition: Home
== END 2019-04-10 08:31 | disposition home or self-care (01) ==
LOC: UCCORT 07:42
DX: H65.92 Unspecified nonsuppurative otitis media, left ear (principal); J02.9 Acute pharyngitis, unspecified; E07.9 Disorder of thyroid, unspecified; H92.02 Otalgia, left ear; R19.7 Diarrhea, unspecified; R10.9 Unspecified abdominal pain; R11.0 Nausea; R52 Pain, unspecified; Z91.09 Other allergy status, other than to drugs and biological substances; Z88.8 Allergy status to other drugs, medicaments and biological substances; Z79.899 Other long term (current) drug therapy
CPT/HCPCS: 99212; G0463

== ENCOUNTER 2019-07-09 13:08 | Emergency (ER) | payer OTHER ==
[2019-07-09 14:27] VITALS: BP 128/63
--- NOTE | 2019-07-09 15:02 | UC ---
Skin Complaint HPI - HPI Summary HPI Summary: Pt presents c/o "infected nail" on right middle finger. Pt states that she was trimming her nails and cut nail tool close to nail bed. area is now tender and draining clear, yellow that has a "bad odor" - History of Current Complaint Chief Complaint: UCSkin Time Seen by Provider: 07/09/19 14:59 Stated Complaint: LT MIDDLE FINGER INFECTION Hx Obtained From: Patient Hx Last Menstrual Period: 06/25/2019 ?: No Onset/Duration: Gradual Onset, Lasting Days, Still Present, Worse Since - onset Skin Exposure Onset/Duration: Days Ago Timing: Constant Onset Severity: Mild Current Severity: Mild Pain Intensity: 4 Location: Discrete - right middle finger medial aspect of nail Character: Swelling, Pain, Redness, Raised, Painful Aggravating Factor(s): Touch Alleviating Factor(s): Nothing Associated Signs & Symptoms: Positive: Drainage, Tenderness Related History: Trauma - trimming nails - Allergy/Home Medications Allergies/Adverse Reactions: Allergies Allergy/AdvReac Type Severity Reaction Status Date / Time Adhesive Tape AdvReac Redness Verified 07/09/19 14:22 metoclopramide [From Reglan] AdvReac shaky, Verified 07/09/19 14:22 nausea, dizzy PMH/Surg Hx/FS Hx/Imm Hx Previously Healthy: Yes - Surgical History Surgical History: Yes Surgery Procedure, Year, and Place: Right Ovarian Cyst, [place] - Family History Known Family History: Positive: Cardiac Disease - Social History Occupation: Employed Full-time Lives: With Family Alcohol Use: None Substance Use Type: None Smoking Status (MU): Never Smoked Tobacco Have You Smoked in the Last Year: No Review of Systems All Other Systems Reviewed And Are Negative: Yes Constitutional: Positive: Negative Skin: Positive: Other - swelling, drainage, mild erythema Eyes: Positive: Negative ENT: Positive: Negative Respiratory: Positive: Negative Cardiovascular: Positive: Negative Gastrointestinal: Positive: Negative Genitourinary: Positive: Negative Motor: Positive: Negative Neurovascular: Positive: Negative Musculoskeletal: Positive: Edema Neurological/Mental Status: Positive: Negative Psychological: Positive: Negative Is Patient Immunocompromised?: No Physical Exam Triage Information Reviewed: Yes Appearance: Well-Appearing Vital Signs: Initial Vital Signs Temp 98.7 F 07/09/19 14:21 Pulse 94 07/09/19 14:21 Resp 16 07/09/19 14:21 BP 128/63 07/09/19 14:21 Pulse Ox 100 07/09/19 14:21 Vital Signs Reviewed: Yes Eye Exam: Normal ENT: Positive: Hearing grossly normal Dental Exam: Normal Neck exam: Normal Respiratory: Positive: No respiratory distress Musculoskeletal: Positive: Edema @ - mild swelling left middle finger Neurological Exam: Normal Psychological Exam: Normal Skin Exam: Other - slight swelling of skin on left middle finger medial aspect of nail bed. dried, yellow discahrge. Course/Dx - Differential Diagnoses - Skin Complaint Differential Diagnoses: Cellulitis, Contact Dermatitis, MRSA - Diagnoses Provider Diagnosis: Infected nailbed of finger Discharge ED - Sign-Out/Discharge Documenting (check all that apply): Patient Departure All imaging exams completed and their final reports reviewed: No Studies - Discharge Plan Condition: Stable Disposition: HOME Prescriptions: Cephalexin CAP* [Keflex 500 CAP*] 500 mg PO Q12H #10 cap Patient Education Materials: Warm Compress or Soak (ED), Acute Wound Care (ED) Referrals: Clarissa Trujillo NP [Primary Care Provider] - If Needed - Billing Disposition and Condition Condition: STABLE Disposition: Home
== END 2019-07-09 15:10 | disposition home or self-care (01) ==
LOC: UCCORT 13:08
DX: L03.012 Cellulitis of left finger (principal); Z91.09 Other allergy status, other than to drugs and biological substances; Z88.8 Allergy status to other drugs, medicaments and biological substances; W26.9XXA Contact with unspecified sharp object(s), initial encounter; Y92.9 Unspecified place or not applicable
CPT/HCPCS: 99212; G0463